=== PATIENT | female | born 1950 | race Caucasian/White ===

== ENCOUNTER 2017-11-22 13:21 | Emergency (ER) | payer OTHER ==
[2017-11-22 13:36] VITALS: BMI 25.0
--- NOTE | 2017-11-22 14:13 | PDOC ---
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 Ybarra: [phone]) 67 y.o. female with a PMH of HTN and vulvar CA (s/p resection 2015) w groin lymph node dissection recurrence in October 2017 who presents with an infected wound. Patient was evaluated and hospitalized at [facility] with MRSA following her 10/2017 surgery. Patient currently on PO Augmentin and has her wound vac changed every three days by a visiting nurse. Nurse noticed some increased erythema and edema today prompting patient's visit to our ED. 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 Ybarra Past History - Past Medical History Allergies/Adverse Reactions: Allergies Allergy/AdvReac Type Severity Reaction Status Date / Time No Known Allergies Allergy Verified 11/22/17 13:30 Home Medications: Ambulatory Orders Unobtainable [Unobtainable] 11/22/17 Cancer: Yes (VULVAR -S/P SX, WOUND VAC ON) COPD: No HTN: Yes Seizures: Yes - Surgical History GI Surgery: Yes (VULVAR -S/P SX, WOUND VAC ON) - Suicide/Smoking/Psychosocial Hx Smoking History: Never smoked Review of Systems - Review of Systems Constitutional: No: Chills, Fever HEENTM: No: Recent change in vision Respiratory: No: Cough, Shortness of Breath Cardiac (ROS): No: Chest Pain ABD/GI: No: Constipated, Diarrhea, Nausea, Vomiting : No: Burning, Dysuria *Physical Exam - Vital Signs Last Vital Signs Temp Pulse Resp BP Pulse Ox 97.9 F 77 19 128/65 99 11/22/17 13:31 11/22/17 13:31 11/22/17 13:31 11/22/17 13:31 11/22/17 13:31 - Physical Exam General Appearance: Yes: Nourished, Appropriately Dressed HEENT: positive: EOMI, SIMRAN Neck: positive: Trachea midline, Supple Respiratory/Chest: positive: Lungs Clear Cardiovascular: positive: S1, S2 Gastrointestinal/Abdominal: positive: Normal Bowel Sounds, Soft, Other (L vulvar edema, TTP - wound vac intact with no appreciable discharge) Extremity: positive: Normal Capillary Refill, Normal Inspection, Coldness, Cyanosis Neurologic: positive: Fully Oriented, Alert ED Treatment Course - LABORATORY CBC & Chemistry Diagram: 11/22/17 15:22 11/22/17 15:22 Medical Decision Making - Medical Decision Making 11/22/17 15:53 67 y.o. female with a PMH of vulvar cancer, s/p resection with 10/2017 lymph node dissection wound infection presents to our ED w/concern for spreading infection. Physical exam significant for swollen, erythematous, malodorous wound site w/intact wound vacuum. Case d/w patient's gynecology-oncology Dr. Emigdio Guerrero - accepts patient for transfer and further evaluation. *DC/Admit/Observation/Transfer Diagnosis at time of Disposition: Postoperative wound infection - Discharge Dispostion Disposition: TRANSFER ACUTE CARE/OTHER HOSP Condition at time of disposition: Stable Admit: No - Referrals Referrals: Noelle Joyner MD [Primary Care Provider] - - Patient Instructions - Post Discharge Activity
--- NOTE | 2017-11-22 14:17 | PDOC ---
Attending Attestation - HPI HPI: 11/22/17 15:00 The patient is a 67 year old female with a significant PMH of vulvar cancer (s/ p resection and vulva reconstruction), HTN, and seizures who presents to the emergency department with the aid who reports malodorous and warm vulvar wound vac. The patient had a wound vac placed in September which she pulled in out in October and had to be replaced. The aid noticed a strong odor over the last few days. The patient denies chest pain, shortness of breath, headache and dizziness. Denies fever, chills, nausea, vomit, diarrhea and constipation. Denies dysuria, frequency, urgency and hematuria. Allergies: NKA Social history: No reported PCP: Dr. Joyner <Bindu Tripp - Last Filed: 11/22/17 15:00> - Resident Resident Name: Marlon Tamica - ED Attending Attestation I have performed the following: I have examined & evaluated the patient, The case was reviewed & discussed with the resident, I agree w/resident's findings & plan, Exceptions are as noted - Physicial Exam PE: GENERAL: Awake, alert, and fully oriented, in no acute distress HEAD: No signs of trauma EYES: PERRLA, EOMI, sclera anicteric, conjunctiva clear ENT: Auricles normal inspection, hearing grossly normal, nares patent, oropharynx clear without exudates. Moist mucosa NECK: Normal ROM, supple, no lymphadenopathy, JVD, or masses LUNGS: Breath sounds equal, clear to auscultation bilaterally. No wheezes, and no crackles HEART: Regular rate and rhythm, normal S1 and S2, no murmurs, rubs or gallops ABDOMEN: Soft, nontender, normoactive bowel sounds. No guarding, no rebound. No masses EXTREMITIES: Normal range of motion, no edema. No clubbing or cyanosis. No cords, erythema, or tenderness NEUROLOGICAL: Cranial nerves II through XII grossly intact. Normal speech, normal gait SKIN: Warm, Dry, normal turgor, no rashes or lesions noted. : L groin VAC in place, draining serosanguinous material. +Edema and erythema distal to the VAC at the most proximal portion of L anterior thigh. - Medical Decision Making Concerned that the swelling has been worsening despite VAC placement. Poss cellulitis vs worsening CA? Will d/w patient's physicians at [facility]. <Jeanne Kam - Last Filed: 11/23/17 21:14>
[2017-11-22 15:28] LABS: BASO % 0.6 % (0-2.0); EOS % 5.5 % (0-4.5); HEMATOCRIT 31.3 % (32.4-45.2); HEMOGLOBIN 10.7 GM/dL (10.7-15.3); LYMPH % 18.8 % (8-40); MCH 27.8 pg (25.7-33.7); MEAN CELL VOLUME 81.6 fl (80-96); MEAN PLT VOLUME 7.4 fl (7.5-11.1); MONO % 10.6 % (3.8-10.2); NEUT % 64.5 % (42.8-82.8); PLATELET COUNT 321 K/MM3 (134-434); RBC 3.84 M/mm3 (3.60-5.2); RDW 14.6 % (11.6-15.6); WHITE BLOOD COUNT 7.8 K/mm3 (4.0-10.0)
[2017-11-22] MEDS ORDERED: morphine CARPU-JECT 2 MG/1 ML DISP.SYRIN IVPUSH ONE (15:52)
[2017-11-22 15:56] LABS: ALBUMIN 2.6 g/dl (3.4-5.0); ANION GAP 10 (8-16); BILIRUBIN,TOTAL 0.2 mg/dL (0.2-1.0); BLOOD UREA NITROGEN 17 mg/dL (7-18); CALCIUM 8.4 mg/dL (8.5-10.1); CHLORIDE 105 mmol/L (98-107); CO2 28 mmol/L (21-32); CREATININE 0.7 mg/dL (0.55-1.02); GLUCOSE,RANDOM 95 mg/dL (74-106); POTASSIUM 3.7 mmol/L (3.5-5.1); SGOT/AST 18 U/L (15-37); SGPT/ALT 22 U/L (12-78); SODIUM 143 mmol/L (136-145); TOT PROT 6.6 g/dl (6.4-8.2)
[2017-11-22 15:57] LABS: ALK PHOS 126 U/L (45-117)
[2017-11-22] MEDS ORDERED: MORPHINE SULFATE 10 MG/1 ML *VIAL ONE (16:41)
[2017-11-22 19:43] VITALS: BP 122/69; PULSE 67; TEMP 98.2
== END 2017-11-22 19:43 | disposition short-term general hospital (02) ==
LOC: JER 13:21
PROC: 3E033NZ Introduction of Analgesics, Hypnotics, Sedatives into Peripheral Vein, Percutaneous Approach (ICD-10-PCS; principal; 2017-11-22)
DX: T81.4XXA Infection following a procedure, initial encounter (principal); Z85.44 Personal history of malignant neoplasm of other female genital organs
CPT/HCPCS: 36415; 80053; 85025; 87040; 99283-25

== ENCOUNTER 2018-01-10 18:23 | Inpatient (IN) | payer OTHER ==
[2018-01-10] MEDS ORDERED: VANCOMYCIN 1,000 MG in DEXTROSE 5%-WATER - 250 ML IVPB ONE (19:30)
[2018-01-10] MEDS ORDERED: PIPERACILLIN/TAZOB 3.375 GM 3.375 GM in DEXTROSE 5%-WATER - 50 ML IVPB ONE (19:31)
[2018-01-10] MEDS ORDERED: SODIUM CHLORIDE 1,000 ML IV STA (19:32)
[2018-01-10] MEDS ORDERED: ACETAMINOPHEN 1000 MG/100 ML VIAL (NON FORMULARY) IVPB ONE (19:32)
--- NOTE | 2018-01-10 19:37 | PDOC ---
Attending Attestation - HPI HPI: 01/10/18 20:10 The patient is a 67 year old female with a significant PMH of vulvar CA (s/p resection and reconstruction), HTN, and seizures who presents to the emergency department with a fever (T. max 102F) and for evaluation of her left inguinal wound. Allergies: NKA PCP: Dr. Joyner <Hua Brower - Last Filed: 01/10/18 20:10> - Resident Resident Name: Gabino Livingston - ED Attending Attestation I have performed the following: I have examined & evaluated the patient, The case was reviewed & discussed with the resident, I agree w/resident's findings & plan, Exceptions are as noted - Physicial Exam PE: 01/10/18 20:23 *Physical Exam General Appearance: Yes: Appropriately Dressed. No: Apparent Distress, Intoxicated HEENT: positive: EOMI, SIMRAN, Normal ENT Inspection, Normal Voice, TMs Normal, Pharynx Normal. negative: Pale Conjunctivae, Photophobia, Scleral Icterus (R), Scleral Icterus (L) Neck: positive: Trachea midline, Normal Thyroid, Supple. negative: Tender, Rigid, Carotid bruit, Stridor, Lymphadenopathy (R), Lymphadenopathy (L), Thyromegaly Respiratory/Chest: positive: Lungs Clear, Normal Breath Sounds. negative: Chest Tender, Respiratory Distress, Accessory Muscle Use, Labored Respiration, RES, Crackles, Rales, Rhonchi, Stridor, Wheezing, Dullness Cardiovascular: positive: Regular Rhythm, Regular Rate, S1, S2. negative: Edema , JVD, Murmur, Bradycardia, Tachycardia Vascular Pulses: Dorsalis-Pedis (R): 2+, Doralis-Pedis (L): 2+ Gastrointestinal/Abdominal: positive: Normal Bowel Sounds, open wound to LLQ, approximmately 15cm x 10 cm, malodrous negative: Tender, Organomegaly, Pulsatile Mass, Increased Bowel Sounds, Decreased BS, Distended, Guarding, Rebound, Hernia, Hepatomegaly, Spleenomegaly Lymphatic: negative: Adenopathy, Tenderness Musculoskeletal: positive: Normal Inspection. negative: CVA Tenderness, Decreased Range of Motion Extremity: positive: Normal Capillary Refill, Normal Inspection, Normal Range of Motion, Pelvis Stable. LLE swollen, tender, and erythematous negative: Tender , Pedal Edema, Swelling, Erythema Integumentary: positive: Normal Color, Dry, Warm. 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 negative: EOM Palsy, Facial Droop, Sensory Deficit - Medical Decision Making 01/10/18 20:[address] Joyner, pt pcp. Pt to be admitted for further treatment <Edgard Robles - Last Filed: 01/10/18 20:29> Heart Score/ECG Review #1 01/10/18 20:10 EKG done at 19:07 Vent rate 89 bpm Normal sinus rhythm Normal ECG <Hua Brower - Last Filed: 01/10/18 20:10>
[2018-01-10 20:22] LABS: VENOUS PC02 45.6 mmHg (38-52); VENOUS PH 7.42 (7.32-7.42); VENOUS PO2 23.3 mmHg (28-48)
[2018-01-10 20:31] LABS: BASO % 0.3 % (0-2.0); EOS % 2.2 % (0-4.5); HEMATOCRIT 31.2 % (32.4-45.2); HEMOGLOBIN 10.6 GM/dL (10.7-15.3); LYMPH % 9.7 % (8-40); MCHC 33.9 g/dl (32.0-36.0); MEAN CELL VOLUME 79.7 fl (80-96); NEUT % 80.8 % (42.8-82.8); PLATELET COUNT 421 K/MM3 (134-434); RBC 3.91 M/mm3 (3.60-5.2); RDW 15.3 % (11.6-15.6); WHITE BLOOD COUNT 9.1 K/mm3 (4.0-10.0)
[2018-01-10 20:42] LABS: INR 1.02 (0.82-1.09); PROTHROMBIN TIME (PATIENT) 11.5 SEC (9.7-13.0)
[2018-01-10 20:44] LABS: ACTIVATED PTT 20.5 SECONDS (26.9-34.4)
[2018-01-10 20:54] LABS: ALBUMIN 2.8 g/dl (3.4-5.0); ANION GAP 8 (8-16); BILIRUBIN,TOTAL 0.2 mg/dL (0.2-1.0); BLOOD UREA NITROGEN 18 mg/dL (7-18); CALCIUM 8.4 mg/dL (8.5-10.1); CHLORIDE 100 mmol/L (98-107); CO2 28 mmol/L (21-32); CREATININE 0.9 mg/dL (0.55-1.02); GLUCOSE,RANDOM 108 mg/dL (74-106); POTASSIUM 4.1 mmol/L (3.5-5.1); SGOT/AST 49 U/L (15-37); SGPT/ALT 39 U/L (12-78); SODIUM 136 mmol/L (136-145); TOT PROT 7.8 g/dl (6.4-8.2)
[2018-01-10 20:55] LABS: ALK PHOS 183 U/L (45-117)
--- NOTE | 2018-01-10 21:03 | PDOC ---
History of Present Illness - General Chief Complaint: Wound Stated Complaint: PAIN Time Seen by Provider: 01/10/18 19:15 History Source: Patient Exam Limitations: No Limitations - History of Present Illness Initial Comments: 01/10/18 20:03 Patient is a 67F with history of HTN, vulvar cancer with lymph node dissection in October 2017 coming in complaining of wound to her left groin region. She states that she called an ambulance today because she has a fever. The patient has poor insight into her condition, stating that her son has been doing daily wound checks. She denies chest pain, shortness of breath, nausea, vomiting. Her surgery was done in [facility] by Dr Ybarra ([phone]). Dr Guerrero contacted , states that patient has had this wound chronically and issues with it several times before. States that patient has cancer that isn't amenable for surgery. Past History - Past Medical History Allergies/Adverse Reactions: Allergies Allergy/AdvReac Type Severity Reaction Status Date / Time No Known Allergies Allergy Verified 01/10/18 19:35 Home Medications: Ambulatory Orders Unobtainable [Unobtainable] 11/22/17 Cancer: Yes (VULVAR -S/P SX, WOUND VAC ON) COPD: No HTN: Yes Seizures: Yes - Surgical History GI Surgery: Yes (VULVAR -S/P SX, WOUND VAC ON) - Suicide/Smoking/Psychosocial Hx Smoking History: Never smoked Have you smoked in the past 12 months: No Information on smoking cessation initiated: No Hx Alcohol Use: No Drug/Substance Use Hx: No Substance Use Type: None Review of Systems - Review of Systems Comments:: 01/10/18 21:06 GENERAL/CONSTITUTIONAL: Positive for fever and chills. HEAD, EYES, EARS, NOSE AND THROAT: No change in vision. No sore throat. CARDIOVASCULAR: No chest pain or shortness of breath RESPIRATORY: No cough, wheezing, or hemoptysis. GASTROINTESTINAL: No nausea, vomiting, diarrhea or constipation. GENITOURINARY: No dysuria, frequency, or change in urination. MUSCULOSKELETAL: No joint or muscle swelling or pain. No neck or back pain. SKIN: No rash NEUROLOGIC: No headache, vertigo, loss of consciousness, or change in strength/ sensation. ENDOCRINE: No increased thirst. No abnormal weight change HEMATOLOGIC/LYMPHATIC: No anemia, easy bleeding, or history of blood clots. ALLERGIC/IMMUNOLOGIC: No hives or skin allergy. *Physical Exam - Vital Signs Last Vital Signs Temp Pulse Resp BP Pulse Ox 102.0 F H 92 H 19 156/78 100 01/10/18 18:30 01/10/18 18:30 01/10/18 18:30 01/10/18 18:30 01/10/18 18:30 - Physical Exam Comments: 01/10/18 21:07 GENERAL: Awake, alert, and fully oriented, in no acute distress, malodorous L WOUND: [id number] deep, packed, odorous, drainage HEAD: No signs of trauma, normocephalic, atraumatic EYES: PERRLA, EOMI, sclera anicteric, conjunctiva clear ENT: Auricles normal inspection, hearing grossly normal, nares patent, oropharynx clear without exudates. Moist mucosa NECK: Normal ROM, supple, no lymphadenopathy, JVD, or masses LUNGS: No distress, speaks full sentences, clear to auscultation bilaterally HEART: Regular rate and rhythm, normal S1 and S2, no murmurs, rubs or gallops, peripheral pulses normal and equal bilaterally. ABDOMEN: Soft, nontender, normoactive bowel sounds. No guarding, no rebound. No masses EXTREMITIES: Normal inspection, Normal range of motion, pitting edema diffusely in left leg. No clubbing or cyanosis. NEUROLOGICAL: Cranial nerves II through XII grossly intact. Normal speech, no focal sensorimotor deficits SKIN: Warm, Dry, normal turgor, no rashes or lesions noted. ED Treatment Course - LABORATORY CBC & Chemistry Diagram: 01/10/18 19:58 01/10/18 19:58 - RADIOLOGY Radiology Studies Ordered: Category Date Time Status CHEST X-RAY PORTABLE* [RAD] Stat Radiology 01/10/18 19:20 Completed DUPLEX VASCUL US-2LEGS [US] Stat Ultrasound 01/10/18 19:38 Ordered Medical Decision Making - Medical Decision Making 01/10/18 20:25 Patient is 67F with history of HTN, vulvar cancer s/p lymph node dissection here today with groin wound. Febrile, tachycardic, septic. BP stable. Septic workup initiated with bilateral DVT US added. Patient started on vanc, zosyn and flagyl. Given 1L fluids instead of full 30cc bolus due to patients diffuse edema in both legs, left worse than right. Will re-evaluate need for further 800mL to meet 30cc/kg target. IV tylenol given. Initial peripheral IV access failed. US guided IV placed under supervision of Dr Robles. CXR shows no acute cardiopulmonary process. 01/10/18 21:48 Laboratory Tests 01/10/18 01/10/18 01/10/18 19:58 19:58 19:58 WBC 9.1 Hgb 10.6 L Hct 31.2 L Plt Count 421 D VBG pH 7.42 Lactic Acid Troponin I < 0.02 01/10/18 19:58 WBC Hgb Hct Plt Count VBG pH Lactic Acid 1.4 Troponin I CBC normal. Lactic acid normal. Troponin undetectable. Vital signs remain stable. DVT study limited, but negative. Believe swelling likely due to infection and lymph node dissection. Patient septic, not severe sepsis or or septic shock. Dr Joyner accepted admission. *DC/Admit/Observation/Transfer Diagnosis at time of Disposition: Wound infection - Discharge Dispostion Condition at time of disposition: Stable Decision to Admit order: Yes - Referrals Referrals: Noelle Joyner MD [Primary Care Provider] - - Patient Instructions - Post Discharge Activity
[2018-01-10] MEDS ORDERED: VANCOMYCIN 1 GRAM (PRE-DOCKED) 1,000 MG/250 ML BAG IVPB ONE (22:17)
[2018-01-10] MEDS ORDERED: ACETAMINOPHEN INJECTION 100 ML IVPB ONE (22:17)
[2018-01-10] MEDS ORDERED: PIPERACILLIN/TAZOB 3.375 GM 3.375 GM/50 ML BAG IVPB ONE (22:18)
[2018-01-11 07:19] LABS: BASO % 0.7 % (0-2.0); EOS % 3.3 % (0-4.5); HEMATOCRIT 29.3 % (32.4-45.2); HEMOGLOBIN 9.9 GM/dL (10.7-15.3); LYMPH % 13.5 % (8-40); MCH 27.1 pg (25.7-33.7); MCHC 33.9 g/dl (32.0-36.0); MEAN CELL VOLUME 79.9 fl (80-96); MEAN PLT VOLUME 7.6 fl (7.5-11.1); MONO % 11.2 % (3.8-10.2); NEUT % 71.3 % (42.8-82.8); PLATELET COUNT 373 K/MM3 (134-434); RBC 3.66 M/mm3 (3.60-5.2); WHITE BLOOD COUNT 7.3 K/mm3 (4.0-10.0)
[2018-01-11 08:01] LABS: CHLORIDE 104 mmol/L (98-107); POTASSIUM 3.8 mmol/L (3.5-5.1); SODIUM 138 mmol/L (136-145)
[2018-01-11 08:07] LABS: URINE APPEARANCE CLEAR; URINE BILIRUBIN NEGATIVE (<2.0 mg/dL); URINE COLOR YELLOW; URINE GLUCOSE (UA) NEGATIVE (NEGATIVE); URINE KETONE NEGATIVE (NEGATIVE); URINE LEUK ESTERASE TRACE (NEGATIVE); URINE NITRITE NEGATIVE (NEGATIVE); URINE PROTEIN NEGATIVE (NEGATIVE); URINE UROBILINOGEN NEGATIVE mg/dL (0.2-1.0)
[2018-01-11 08:17] LABS: EPI CELLS RARE /HPF (FEW); URINE BACTERIA RARE /hpf (NONE SEEN); URINE MUCUS RARE
[2018-01-11 08:29] LABS: ALBUMIN 2.4 g/dl (3.4-5.0); ALK PHOS 159 U/L (45-117); ANION GAP 7 (8-16); BILIRUBIN,TOTAL 0.3 mg/dL (0.2-1.0); BLOOD UREA NITROGEN 14 mg/dL (7-18); CALCIUM 8.2 mg/dL (8.5-10.1); CO2 27 mmol/L (21-32); CREATININE 0.8 mg/dL (0.55-1.02); GLUCOSE,RANDOM 94 mg/dL (74-106); MAGNESIUM 2.3 mg/dL (1.8-2.4); SGOT/AST 26 U/L (15-37); SGPT/ALT 30 U/L (12-78)
--- NOTE | 2018-01-11 09:41 | EKG ---
Test Reason : Blood Pressure : / mmHG Vent. Rate : 089 BPM Atrial Rate : 089 BPM P-R Int : 130 ms QRS Dur : 080 ms QT Int : 368 ms P-R-T Axes : 041 025 032 degrees QTc Int : 447 ms NORMAL SINUS RHYTHM WHEN COMPARED WITH ECG OF 03-NOV-2002 12:19, NO SIGNIFICANT CHANGE WAS FOUND Confirmed by AYUSH ROMERO MD ([id number]) on 01/11/2018 9:41:40 AM Referred By: Confirmed By:AYUSH ROMERO MD
--- NOTE | 2018-01-11 10:47 | CON.ID ---
Consult Consult Specialty:: infectious disease Referred by:: anurag - History of Present Illness Chief Complaint: fever History of Present Illness: 67year old female with vulvar cancer s/p resection 2016, recent groin lymph no resection 2017, hospitalized in November at [facility] for wound infection now admitted with fever of 102. 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 groin lymph node resection Oct 2017 - Alcohol/Substance Use Hx Alcohol Use: No - Smoking History Smoking history: Never smoked Have you smoked in the past 12 months: No - Social History Usual Living Arrangement: With Child ADL: Independent Home Medications - Allergies Allergies/Adverse Reactions: Allergies Allergy/AdvReac Type Severity Reaction Status Date / Time No Known Allergies Allergy Verified 01/10/18 19:35 - Home Medications Home Medications: Ambulatory Orders Unobtainable [Unobtainable] 11/22/17 Family Disease History - Family Disease History Family History: Unable to Obtain Review of Systems - Review of Systems Constitutional: reports: Fever Eyes: reports: No Symptoms HENT: reports: No Symptoms. denies: Difficult Swallowing, Throat Pain Neck: reports: No Symptoms Cardiovascular: reports: No Symptoms, Edema (chronic swelling RLE). denies: Chest Pain Respiratory: reports: No Symptoms. denies: Cough, SOB Gastrointestinal: reports: No Symptoms. denies: Abdominal Pain, Constipation, Diarrhea Genitourinary: reports: No Symptoms. denies: Burning, Discharge, Hematuria, Urgency Physical Exam Vital Signs: Vital Signs Temperature 98.3 F 01/11/18 10:16 Pulse Rate 71 01/11/18 10:16 Respiratory Rate 18 01/11/18 10:16 Blood Pressure 139/67 01/11/18 10:16 O2 Sat by Pulse Oximetry (%) 97 01/11/18 10:16 Constitutional: Yes: Well Nourished, No Distress Eyes: Yes: Conjunctiva Clear HENT: Yes: Atraumatic, Normocephalic Neck: Yes: Supple Cardiovascular: Yes: Regular Rate and Rhythm Respiratory: Yes: Regular, CTA Bilaterally Gastrointestinal: Yes: Normal Bowel Sounds, Soft ...Rectal Exam: Yes: Deferred Renal/: No: CVA Tenderness - Left, CVA Tenderness - Right Extremities: Yes: Other (edema LLE-patient reports chronic) Edema: LLE: 2+ Wound/Incision: Yes: Other (large left groin ulcer with foul odor and drainage, no surrounding cellulitis) Psychiatric: Yes: Oriented Labs: CBC, BMP 01/11/18 06:12 01/11/18 07:40 Imaging - Results Chest X-ray: Report Reviewed, Image Reviewed Ultrasound: Report Reviewed Problem List - Problems (1) Fever Code(s): R50.9 - FEVER, UNSPECIFIED (2) Wound infection Code(s): T14.8XXA - OTHER INJURY OF UNSPECIFIED BODY REGION, INITIAL ENCOUNTER; L08.9 - LOCAL INFECTION OF THE SKIN AND SUBCUTANEOUS TISSUE, UNSP Assessment/Plan fever- no other localizing source but the groin wound foul smelling with drainage vanoc/zosyn- cultures surgical evaluation will follow with you duplex negative for dvt d/w primary service
[2018-01-11] MEDS ORDERED: VANCOMYCIN 1,000 MG in DEXTROSE 5%-WATER - 250 ML IVPB SCH (11:00)
--- NOTE | 2018-01-11 11:09 | HP ---
Admitting History and Physical - Primary Care Physician PCP: Dr. Joyner - Admission Chief Complaint: 67 y/o female came to ER last night for pain/edema in left leg / fever.Has Chronic nonhealing wd in lt groin area. History of Present Illness: 67 y/o female had Vulvar CA s/p resection at [facility]. Now with infected Wd. History Source: Patient Limitations to Obtaining History: No Limitations - Smoking History Smoking history: Never smoked Have you smoked in the past 12 months: No - Alcohol/Substance Use Hx Alcohol Use: No - Social History ADL: Family Assistance (Son assists) History of Recent Travel: No Home Medications - Allergies Allergies/Adverse Reactions: Allergies Allergy/AdvReac Type Severity Reaction Status Date / Time No Known Allergies Allergy Verified 01/10/18 19:35 - Home Medications Home Medications: Ambulatory Orders Unobtainable [Unobtainable] 11/22/17 Review of Systems - Review of Systems Constitutional: reports: No Symptoms Eyes: reports: No Symptoms HENT: reports: No Symptoms Neck: reports: No Symptoms Cardiovascular: reports: No Symptoms Respiratory: reports: No Symptoms Gastrointestinal: reports: No Symptoms Genitourinary: reports: No Symptoms Breasts: reports: No Symptoms Reported Musculoskeletal: reports: No Symptoms, Extremity Pain, Joint Swelling Integumentary: reports: No Symptoms Neurological: reports: No Symptoms Endocrine: reports: No Symptoms Hematology/Lymphatic: reports: No Symptoms Psychiatric: reports: No Symptoms Physical Examination Vital Signs: Vital Signs Temperature 98.3 F 01/11/18 10:16 Pulse Rate 71 01/11/18 10:16 Respiratory Rate 18 01/11/18 10:16 Blood Pressure 139/67 01/11/18 10:16 O2 Sat by Pulse Oximetry (%) 97 01/11/18 10:16 Constitutional: Yes: Well Nourished, Calm Eyes: Yes: WNL, Conjunctiva Clear HENT: Yes: WNL, Normocephalic Neck: Yes: Supple Cardiovascular: Yes: Regular Rate and Rhythm Respiratory: Yes: CTA Bilaterally Gastrointestinal: Yes: Normal Bowel Sounds, Soft, Abdomen, Obese ...Rectal Exam: Yes: Deferred Renal/: Yes: WNL Breast(s): Yes: WNL Musculoskeletal: Yes: Joint Swelling Extremities: Yes: Cool, Deformity Edema: Yes (Lt Inguinal to foot) Edema: LUE: 2+ (Entire LE edematous) Integumentary: Yes: Other (Inguinal wd) Labs: CBC, BMP 01/11/18 06:12 01/11/18 07:40 Imaging - Results Other: Pending (Doppler LT LE) Problem List - Problems (1) Seizures Code(s): R56.9 - UNSPECIFIED CONVULSIONS (2) Hypertension Code(s): I10 - ESSENTIAL (PRIMARY) HYPERTENSION Qualifiers: Hypertension type: essential hypertension Qualified Code(s): I10 - Essential (primary) hypertension Assessment/Plan #LT inguinal Wd Seen With ID IV antibiotics Wd Consult Tylenol for pain # HTN RADHA #Seizure Oxycarbazepine 600mg BID
[2018-01-11] MEDS: PIPERACILLIN/TAZOB 3.375 GM 3.375 GM in DEXTROSE 5%-WATER - 50 ML IVPB SCH ×3 (11:30→22:06)
[2018-01-11 13:51] VITALS: BMI 26.4
[2018-01-11] MEDS ORDERED: PNEUMOC 13-VAL CONJ-DIP CRM/PF 0.5 ML DISP.SYRIN IM ONE (14:01)
[2018-01-11] MEDS ORDERED: PIPERACILLIN/TAZOBACTAM 3.375 GM VIAL IVPB ONE (14:29)
[2018-01-11] MEDS ORDERED: DEXTROSE 5%-WATER - 50 ML IVPB ONE (14:30)
[2018-01-11] MEDS: OXcarbazepine 300 MG/5 ML 250 ML BULK BOTTLE PO SCH ×2 (17:11→22:07)
--- NOTE | 2018-01-11 18:19 | PN ---
Progress Note (short form) - Note Progress Note: Vascular Surgery Pt seen and examined. left groin wound. S/p lymph node dissection and excision of vulvar cancer. DRessing changed. Wound now looks clean, pink. Not a lot of drainage. Will place vac to wound to help close . Pavan Negro DO
[2018-01-11] MEDS ORDERED: PT OWN MED DRAWER 7, Y5N ONE (18:32)
[2018-01-12] MEDS: VANCOMYCIN 1,000 MG in DEXTROSE 5%-WATER - 250 ML IVPB SCH ×2 (01:09→14:00)
[2018-01-12] MEDS ORDERED: PIPERACILLIN/TAZOBACTAM 3.375 GM VIAL IVPB ONE ×4 (03:16→21:07)
[2018-01-12] MEDS ORDERED: DEXTROSE 5%-WATER - 50 ML IVPB ONE ×4 (03:16→21:07)
[2018-01-12] MEDS: PIPERACILLIN/TAZOB 3.375 GM 3.375 GM in DEXTROSE 5%-WATER - 50 ML IVPB SCH ×4 (03:18→21:41)
[2018-01-12] MEDS ORDERED: PT OWN MED DRAWER 7, Y5N ONE ×2 (09:57→11:51)
[2018-01-12] MEDS: OXcarbazepine 300 MG/5 ML 250 ML BULK BOTTLE PO SCH ×2 (09:59→21:40)
--- NOTE | 2018-01-12 18:08 | PN ---
Progress Note (short form) - Note Progress Note: 67year old female with vulvar cancer s/p resection 2016, recent groin lymph no resection 2017, hospitalized in November at [facility] for wound infection now admitted with fever of 102. SHe states her son has been packing her wound at home no cough, dysuria, nausea or vomiting or diarrhea ED contacted her gyneonc at [facility]- transfer declined- chronic wound eval / follow by wound and ID Vital Signs Period Temp Pulse Resp BP Sys/Pedroza Pulse Ox Last 24 Hr 98.0 F-99.1 F 67-77 16-20 140-146/63-74 99 neck supple heart s1/S2 lung clear abd soft not tender left groin open wound packed with gauze / dressing moist ext no edema CBC, BMP 01/11/18 06:12 01/11/18 07:40 Microbiology 01/11/18 12:45 Ulcer Gram Stain - Final 01/11/18 12:45 Ulcer Wound Culture - Preliminary Non Lactose Fermenting Gnb Non Lactose Fermenting Gnb#2 Non Lactose Fermenting Gnb#3 Group D Strep Or Entero Coccus Pending Organism Pending Organism#2 01/10/18 07:30 Urine - Urine Clean Catch Urine Culture - Final Contaminated: Please Repeat 01/10/18 19:58 Blood - Peripheral Venous Blood Culture - Preliminary NO GROWTH OBTAINED AFTER 24 HOURS, INCUBATION TO CONTINUE FOR 4 DAYS. 01/10/18 19:58 Blood - Peripheral Venous Blood Culture - Preliminary NO GROWTH OBTAINED AFTER 24 HOURS, INCUBATION TO CONTINUE FOR 4 DAYS. Active Medications Vancomycin HCl 1,000 mg/ (Dextrose) 250 mls @ 150 mls/hr IVPB BID@0000,1200 LUCY PRN Reason: Protocol Last Admin: 01/12/18 14:00 Dose: 150 mls/hr Piperacillin Sod/Tazobactam (Sod 3.375 gm/ Dextrose) 50 mls @ 100 mls/hr IVPB Q6H-IV LUCY PRN Reason: Protocol Last Admin: 01/12/18 15:48 Dose: 100 mls/hr Oxcarbazepine (Trileptal) 600 mg PO BID [facility] Last Admin: 01/12/18 09:59 Dose: 600 ml # vulvar cancer s/p resection and reconstriction open / infected wound left groin ----improving per nursing continue wound care vacuum still not in place # htn trend bp continue meds # seizure trileptil
[2018-01-13] MEDS ORDERED: DEXTROSE 5%-WATER - 50 ML IVPB ONE ×4 (01:19→21:15)
[2018-01-13] MEDS ORDERED: PIPERACILLIN/TAZOBACTAM 3.375 GM VIAL IVPB ONE ×4 (01:19→21:15)
[2018-01-13] MEDS: VANCOMYCIN 1,000 MG in DEXTROSE 5%-WATER - 250 ML IVPB SCH ×2 (01:46→11:27)
[2018-01-13] MEDS: PIPERACILLIN/TAZOB 3.375 GM 3.375 GM in DEXTROSE 5%-WATER - 50 ML IVPB SCH ×4 (04:09→21:39)
[2018-01-13 07:58] LABS: BASO % 0.5 % (0-2.0); EOS % 6.7 % (0-4.5); HEMATOCRIT 30.3 % (32.4-45.2); HEMOGLOBIN 10.4 GM/dL (10.7-15.3); LYMPH % 15.1 % (8-40); MCH 27.4 pg (25.7-33.7); MCHC 34.3 g/dl (32.0-36.0); MEAN CELL VOLUME 79.8 fl (80-96); MEAN PLT VOLUME 7.9 fl (7.5-11.1); MONO % 9.5 % (3.8-10.2); NEUT % 68.2 % (42.8-82.8); PLATELET COUNT 401 K/MM3 (134-434); WHITE BLOOD COUNT 7.9 K/mm3 (4.0-10.0)
[2018-01-13] MEDS ORDERED: PT OWN MED DRAWER 7, Y5N ONE (08:39)
[2018-01-13 08:47] LABS: CHLORIDE 102 mmol/L (98-107); SODIUM 138 mmol/L (136-145)
[2018-01-13 08:51] LABS: ANION GAP 11 (8-16); BLOOD UREA NITROGEN 14 mg/dL (7-18); CALCIUM 8.3 mg/dL (8.5-10.1); CO2 25 mmol/L (21-32); CREATININE 0.9 mg/dL (0.55-1.02); GLUCOSE,RANDOM 101 mg/dL (74-106)
[2018-01-13 08:54] LABS: MAGNESIUM 2.1 mg/dL (1.8-2.4); POTASSIUM 4.1 mmol/L (3.5-5.1)
[2018-01-13] MEDS: OXcarbazepine 300 MG/5 ML 250 ML BULK BOTTLE PO SCH ×2 (09:59→21:39)
--- NOTE | 2018-01-13 11:40 | PN ---
Progress Note (short form) - Note Progress Note: 67year old female with vulvar cancer s/p resection 2016, recent groin lymph no resection 2017, hospitalized in November at [facility] for wound infection now admitted with fever of 102. SHe states her son has been packing her wound at home no cough, dysuria, nausea or vomiting or diarrhea ED contacted her gyneonc at [facility]- transfer declined- chronic wound eval / follow by wound and ID patient seen and examined when doing wound care wound examined base is clean - not foul smelling - cleaning of wound elicites "electric shock" down her left leg Vital Signs Period Temp Pulse Resp BP Sys/Pedroza Pulse Ox Last 24 Hr 97.9 F-99.5 F 70-76 16-20 142-155/64-88 99 neck supple heart s1/S2 lung clear abd soft groin left - open wound / clean base / borders clean / reconstruction of vulva ext no edema CBC, BMP 01/13/18 07:00 01/13/18 07:00 Microbiology 01/10/18 19:58 Blood - Peripheral Venous Blood Culture - Preliminary NO GROWTH OBTAINED AFTER 48 HOURS, INCUBATION TO CONTINUE FOR 3 DAYS. 01/10/18 19:58 Blood - Peripheral Venous Blood Culture - Preliminary NO GROWTH OBTAINED AFTER 48 HOURS, INCUBATION TO CONTINUE FOR 3 DAYS. 01/11/18 12:45 Ulcer Gram Stain - Final 01/11/18 12:45 Ulcer Wound Culture - Preliminary Non Lactose Fermenting Gnb Non Lactose Fermenting Gnb#2 Non Lactose Fermenting Gnb#3 Group D Strep Or Entero Coccus Pending Organism Pending Organism#2 01/10/18 07:30 Urine - Urine Clean Catch Urine Culture - Final Contaminated: Please Repeat Active Medications Acetaminophen/Codeine Phosphate (Tylenol # 3 -) 1 tab PO Q6H PRN PRN Reason: PAIN LEVEL 1-5 Gabapentin (Neurontin -) 200 mg PO TID LUCY Vancomycin HCl 1,000 mg/ (Dextrose) 250 mls @ 150 mls/hr IVPB BID@0000,1200 LUCY PRN Reason: Protocol Last Admin: 01/13/18 11:27 Dose: 150 mls/hr Piperacillin Sod/Tazobactam (Sod 3.375 gm/ Dextrose) 50 mls @ 100 mls/hr IVPB Q6H-IV LUCY PRN Reason: Protocol Last Admin: 01/13/18 09:59 Dose: 100 mls/hr Oxcarbazepine (Trileptal) 600 mg PO BID LUCY Last Admin: 01/13/18 09:59 Dose: 10 ml # vulvar cancer s/p resection and reconstriction open / infected wound left groin ----improving continue wound care / neuropathic pain with cleaning -- will add gabapentin vacuum still not in place # htn trend bp continue meds # seizure trileptil
[2018-01-13] MEDS: ACETAMINOPHEN WITH CODEINE 300MG/30MG TABLET PO PRN ×2 (12:10→21:38)
[2018-01-13] MEDS: GABAPENTIN 100 MG CAPSULE (FP) PO SCH ×2 (14:26→21:39)
[2018-01-14] MEDS: VANCOMYCIN 1,000 MG in DEXTROSE 5%-WATER - 250 ML IVPB SCH ×2 (01:01→12:03)
[2018-01-14] MEDS ORDERED: PIPERACILLIN/TAZOBACTAM 3.375 GM VIAL IVPB ONE ×2 (01:04→09:55)
[2018-01-14] MEDS ORDERED: DEXTROSE 5%-WATER - 50 ML IVPB ONE ×2 (01:04→09:55)
[2018-01-14] MEDS: PIPERACILLIN/TAZOB 3.375 GM 3.375 GM in DEXTROSE 5%-WATER - 50 ML IVPB SCH ×2 (04:40→10:08)
[2018-01-14] MEDS: GABAPENTIN 100 MG CAPSULE (FP) PO SCH ×3 (06:49→21:19)
[2018-01-14] MEDS ORDERED: PT OWN MED DRAWER 7, Y5N ONE ×2 (09:55→20:52)
[2018-01-14] MEDS: OXcarbazepine 300 MG/5 ML 250 ML BULK BOTTLE PO SCH ×2 (10:09→21:20)
[2018-01-14] MEDS: ACETAMINOPHEN WITH CODEINE 300MG/30MG TABLET PO PRN ×2 (10:52→17:37)
--- NOTE | 2018-01-14 12:55 | PN ---
Progress Note (short form) - Note Progress Note: vac just placed by surgery no surrounding erythema afebrile cor-rrr lungs clear abd soft,nt ext Vac in place CBC, BMP 01/13/18 07:00 01/13/18 07:00 Microbiology 01/11/18 12:45 Ulcer Gram Stain - Final 01/11/18 12:45 Ulcer Wound Culture - Preliminary Pseudomonas Aeruginosa Pseudomonas Aeruginosa#3 Group D Strep Or Entero Coccus Beta Hem Streptococcus Group G Staphylococcus Latex Coag Pos 01/10/18 19:58 Blood - Peripheral Venous Blood Culture - Preliminary NO GROWTH OBTAINED AFTER 72 HOURS, INCUBATION TO CONTINUE FOR 2 DAYS. 01/10/18 19:58 Blood - Peripheral Venous Blood Culture - Preliminary NO GROWTH OBTAINED AFTER 72 HOURS, INCUBATION TO CONTINUE FOR 2 DAYS. 01/10/18 07:30 Urine - Urine Clean Catch Urine Culture - Final Contaminated: Please Repeat a/p chronic wound- clinically clean- no erythema or purulence not suprising wound is pollymicrobial given location can d/c antibitocs local care vac per surgery Problem List - Problems (1) Fever Code(s): R50.9 - FEVER, UNSPECIFIED (2) Wound infection Code(s): T14.8XXA - OTHER INJURY OF UNSPECIFIED BODY REGION, INITIAL ENCOUNTER; L08.9 - LOCAL INFECTION OF THE SKIN AND SUBCUTANEOUS TISSUE, UNSP
--- NOTE | 2018-01-14 13:02 | PN ---
Progress Note (short form) - Note Progress Note: PT seen by Dr. Negro and wound vac ordered. Applied white foam to base and covered with black foam. Applied 75mmg vac therapy. Pt tolerated the procedure well. Wound: granulation tissue at base, minimal exudate. 10 cm long, 2 cm wide and 6 cm deep. Wound located in left groin region. No palpable or visiable masses seen. A/P: 67 yo female with chronic wound after surgical procedure. Vac placed today, change MWF. Orders written. D/w Dr. Negro
--- NOTE | 2018-01-14 18:04 | PN ---
Progress Note (short form) - Note Progress Note: patient seen and examined in her room wound vac still not placed dressing to site looks clean -- no d/c or foul smell she reports leg cramps and pain when wound is cleaned additional gabapentin did not alleviate Vital Signs Period Temp Pulse Resp BP Sys/Pedroza Pulse Ox Last 24 Hr 98.0 F-99.1 F 67-77 16-20 140-146/63-74 99 neck supple heart s1/S2 lung clear abd soft not tender left groin open wound packed with gauze / dressing moist ext no edema CBC, BMP 01/13/18 07:00 01/13/18 07:00 Microbiology 01/11/18 12:45 Ulcer Gram Stain - Final 01/11/18 12:45 Ulcer Wound Culture - Preliminary Pseudomonas Aeruginosa Pseudomonas Aeruginosa#3 Enterococcus Faecalis Beta Hem Streptococcus Group G Presumptive Mrsa (Pbp2a Pos) 01/10/18 19:58 Blood - Peripheral Venous Blood Culture - Preliminary NO GROWTH OBTAINED AFTER 72 HOURS, INCUBATION TO CONTINUE FOR 2 DAYS. 01/10/18 19:58 Blood - Peripheral Venous Blood Culture - Preliminary NO GROWTH OBTAINED AFTER 72 HOURS, INCUBATION TO CONTINUE FOR 2 DAYS. 01/10/18 07:30 Urine - Urine Clean Catch Urine Culture - Final Contaminated: Please Repeat Active Medications Acetaminophen/Codeine Phosphate (Tylenol # 3 -) 1 tab PO Q6H PRN PRN Reason: PAIN LEVEL 1-5 Last Admin: 01/14/18 17:37 Dose: 1 tab Gabapentin (Neurontin -) 200 mg PO TID [facility] Last Admin: 01/14/18 14:08 Dose: 200 mg Oxcarbazepine (Trileptal) 600 mg PO BID [facility] Last Admin: 01/14/18 10:09 Dose: 10 ml Vancomycin HCl 1,000 mg/ (Dextrose) 250 mls @ 150 mls/hr IVPB BID@0000,1200 [facility] PRN Reason: Protocol Last Admin: 01/13/18 11:27 Dose: 150 mls/hr Piperacillin Sod/Tazobactam (Sod 3.375 gm/ Dextrose) 50 mls @ 100 mls/hr IVPB Q6H-IV LUCY PRN Reason: Protocol Last Admin: 01/13/18 09:59 Dose: 100 mls/hr # vulvar cancer s/p resection and reconstruction open / infected wound left groin ----improving continue wound care awaiting placement of wound vac added Gabapentin with no improvement # htn trend bp # seizure trileptil
[2018-01-15] MEDS: GABAPENTIN 100 MG CAPSULE (FP) PO SCH ×3 (06:07→22:18)
[2018-01-15] MEDS: ACETAMINOPHEN WITH CODEINE 300MG/30MG TABLET PO PRN (07:50)
[2018-01-15] MEDS ORDERED: PT OWN MED DRAWER 7, Y5N ONE (11:21)
[2018-01-15] MEDS: OXcarbazepine 300 MG/5 ML 250 ML BULK BOTTLE PO SCH ×2 (11:27→22:19)
--- NOTE | 2018-01-15 23:41 | PN ---
Progress Note (short form) - Note Progress Note: patient seen and examined in her room wound vac still not placed dressing to site looks clean -- no d/c or foul smell she reports leg cramps and pain when wound is cleaned additional gabapentin did not alleviate Vital Signs Period Temp Pulse Resp BP Sys/Pedroza Pulse Ox Last 24 Hr 98.0 F-99.1 F 67-77 16-20 140-146/63-74 99 neck supple heart s1/S2 lung clear abd soft not tender left groin open wound packed with gauze / dressing moist ext no edema CBC, BMP 01/13/18 07:00 01/13/18 07:00 Microbiology 01/10/18 19:58 Blood - Peripheral Venous Blood Culture - Final NO GROWTH AFTER 5 DAYS INCUBATION 01/10/18 19:58 Blood - Peripheral Venous Blood Culture - Final NO GROWTH AFTER 5 DAYS INCUBATION 01/11/18 12:45 Ulcer Gram Stain - Final 01/11/18 12:45 Ulcer Wound Culture - Final Pseudomonas Aeruginosa Pseudomonas Aeruginosa#3 Enterococcus Faecalis Beta Hem Streptococcus Group G Mr S Aureus 01/10/18 07:30 Urine - Urine Clean Catch Urine Culture - Final Contaminated: Please Repeat Active Medications Acetaminophen/Codeine Phosphate (Tylenol # 3 -) 1 tab PO Q6H PRN PRN Reason: PAIN LEVEL 1-5 Last Admin: 01/14/18 17:37 Dose: 1 tab Gabapentin (Neurontin -) 200 mg PO TID [facility] Last Admin: 01/14/18 14:08 Dose: 200 mg Oxcarbazepine (Trileptal) 600 mg PO BID [facility] Last Admin: 01/14/18 10:09 Dose: 10 ml Vancomycin HCl 1,000 mg/ (Dextrose) 250 mls @ 150 mls/hr IVPB BID@0000,1200 [facility] PRN Reason: Protocol Last Admin: 01/13/18 11:27 Dose: 150 mls/hr Piperacillin Sod/Tazobactam (Sod 3.375 gm/ Dextrose) 50 mls @ 100 mls/hr IVPB Q6H-IV [facility] PRN Reason: Protocol Last Admin: 01/13/18 09:59 Dose: 100 mls/hr # vulvar cancer s/p resection and reconstruction open / infected wound left groin ----improving continue wound care awaiting placement of wound vac added Gabapentin with no improvement # htn trend bp disposition # seizure trileptil disposition -- awaiting arrangements for home care / wound vac care
[2018-01-16] MEDS: GABAPENTIN 100 MG CAPSULE (FP) PO SCH ×2 (05:43→15:15)
[2018-01-16 08:04] LABS: BASO % 0.6 % (0-2.0); EOS % 4.5 % (0-4.5); HEMATOCRIT 30.6 % (32.4-45.2); HEMOGLOBIN 10.3 GM/dL (10.7-15.3); LYMPH % 15.8 % (8-40); MCH 26.6 pg (25.7-33.7); MCHC 33.8 g/dl (32.0-36.0); MEAN CELL VOLUME 78.5 fl (80-96); MEAN PLT VOLUME 7.5 fl (7.5-11.1); NEUT % 71.1 % (42.8-82.8); PLATELET COUNT 405 K/MM3 (134-434); RDW 14.8 % (11.6-15.6); WHITE BLOOD COUNT 8.9 K/mm3 (4.0-10.0)
[2018-01-16 08:24] LABS: ANION GAP 9 (8-16); BLOOD UREA NITROGEN 20 mg/dL (7-18); CALCIUM 8.5 mg/dL (8.5-10.1); CHLORIDE 101 mmol/L (98-107); CO2 28 mmol/L (21-32); CREATININE 0.7 mg/dL (0.55-1.02); GLUCOSE,RANDOM 98 mg/dL (74-106); POTASSIUM 4.2 mmol/L (3.5-5.1); SODIUM 138 mmol/L (136-145)
--- NOTE | 2018-01-16 09:20 | PN ---
Progress Note (short form) - Note Progress Note: Wound VAC papers filled out and placed in patient's chart. While patient remains in-house, wound VAC ordered to be changed T-TH-Sat Cont medical management No further surgical intervention. On behalf of Dr. Negro, thank you for the opportunity to participate in your patient's care.
[2018-01-16] MEDS ORDERED: OXcarbazepine 300 MG TABLET (UD) PO SCH (10:00)
--- NOTE | 2018-01-16 11:29 | PN ---
Progress Note (short form) - Note Progress Note: seen and examined in room wound vac is in place arrangements for home wound care in process Vital Signs Period Temp Pulse Resp BP Sys/Pedroza Pulse Ox Last 24 Hr 98.3 F-99.8 F 69-74 18-20 129-147/50-76 95 neck supple heart s1/S2 lung clear abd soft groin left - wound vac in place - system working appropriately ext right leg edema - unchanged CBC, BMP 01/16/18 06:15 01/16/18 06:15 Microbiology 01/10/18 19:58 Blood - Peripheral Venous Blood Culture - Final NO GROWTH AFTER 5 DAYS INCUBATION 01/10/18 19:58 Blood - Peripheral Venous Blood Culture - Final NO GROWTH AFTER 5 DAYS INCUBATION 01/11/18 12:45 Ulcer Gram Stain - Final 01/11/18 12:45 Ulcer Wound Culture - Final Pseudomonas Aeruginosa Pseudomonas Aeruginosa#3 Enterococcus Faecalis Beta Hem Streptococcus Group G Mr S Aureus 01/10/18 07:30 Urine - Urine Clean Catch Urine Culture - Final Contaminated: Please Repeat Active Medications Acetaminophen/Codeine Phosphate (Tylenol # 3 -) 1 tab PO Q6H PRN PRN Reason: PAIN LEVEL 1-5 Last Admin: 01/15/18 07:50 Dose: 1 tab Gabapentin (Neurontin -) 200 mg PO TID [facility] Last Admin: 01/16/18 05:43 Dose: 200 mg Oxcarbazepine (Trileptal -) 600 mg PO BID [facility] Last Admin: 01/16/18 10:01 Dose: 600 mg # vulvar cancer s/p resection and reconstriction open / infected wound left groin ----improved continue wound care / neuropathic pain with cleaning -- will add gabapentin vacuum in place -- awaiting home care arrangements # htn trend bp # seizure trileptil
[2018-01-16 15:52] VITALS: BP 146/78; PULSE 73; TEMP 100.1
--- NOTE | 2018-01-16 16:27 | DS ---
Physical Examination Vital Signs: Vital Signs Temperature 100.1 F H 01/16/18 13:25 Pulse Rate 73 01/16/18 13:25 Respiratory Rate 16 01/16/18 13:25 Blood Pressure 146/78 01/16/18 13:25 O2 Sat by Pulse Oximetry (%) 95 01/15/18 21:00 Findings/Remarks: 67year old female with vulvar cancer s/p resection 2015, recent groin lymph node resection 2017, hospitalized in November at [facility] for wound infection now admitted for recurrent infection to site -- reports fever of 102 day prior to admission. SHe states her son has been packing her wound at home / once he noted foul smell and icreased d/c from site brought her to ER. [facility] was contacted for transfer but declined as not surgical intervention needed at this time. Colleen was admitted cultured and ABX tx initiated. ID and surgical consult obtained -- wound clean and wound vac initiated for continued wound care at home . Patient was d/c home in stable conditions -- instructions given by me in mexican / instructed and advised regarding compliance with home wound care. # vulvar cancer s/p resection and reconstruction open / infected wound left groin ----improving continue wound care awaiting placement of wound vac added Gabapentin with no improvement # htn trend bp disposition # seizure trileptil Constitutional: Yes: Well Nourished, Mild Distress (due to pain to left groin and swollen left leg wound vac in place) Eyes: Yes: Conjunctiva Clear, EOM Intact HENT: Yes: Atraumatic, Normocephalic Neck: Yes: Supple, Trachea Midline Cardiovascular: Yes: Regular Rate and Rhythm Respiratory: Yes: Regular, CTA Bilaterally Gastrointestinal: Yes: Normal Bowel Sounds, Soft ...Rectal Exam: Yes: WNL, Deferred Renal/: Yes: WNL Breast(s): Yes: WNL Musculoskeletal: Yes: WNL Edema: No Edema: LLE: 2+ (lymphangitis groin to toes) Peripheral Pulses WNL: Yes Integumentary: Yes: WNL Wound/Incision: Yes: Unapproximated, Other (wound vac in place open wound left groin) ...Motor Strength: WNL Psychiatric: Yes: Alert, Oriented Labs: CBC, BMP 01/16/18 06:15 01/16/18 06:15 Discharge Summary Reason For Visit: LOCL INFECTION IN WOUND Current Active Problems Fever (Acute) Hypertension (Acute) Seizures (Acute) Wound infection (Acute) Condition: Stable - Instructions Referrals: Noelle Joyner MD [Primary Care Provider] - Pavan Negro MD [Staff Physician] - - Home Medications Comprehensive Discharge Medication List: Ambulatory Orders Oxcarbazepine [Trileptal -] 600 mg PO BID tablet 01/16/18 Oxcarbazepine [Trileptal Susp 300 mg/5 mL -] 600 mg PO BID ml 01/16/18
== END 2018-01-16 18:30 | disposition home health service (06) | DRG 863 ==
LOC: JER 18:23 → JERBED 21:44 → J8W 01-11 13:11
PROVIDERS: ADMIT Family Medicine; ATTEND Family Medicine
DX: T81.4XXA Infection following a procedure, initial encounter (principal); Y83.9 Surgical procedure, unspecified as the cause of abnormal reaction of the patient, or of later complication, without mention of misadventure at the time of the procedure; I10 Essential (primary) hypertension; R56.9 Unspecified convulsions
CPT/HCPCS: 36415; 71045-TC-FY; 80048; 80053; 81003; 81015; 82803; 83605; 83735; 84484; 85025; 85610; 85730; 87040; 87070; 87086; 87186; 87205; 93005; 93010; 93970-TC; 99285-25; J0131; J7030

== ENCOUNTER 2018-01-19 17:59 | Inpatient (IN) | payer OTHER ==
--- NOTE | 2018-01-19 18:28 | PDOC ---
History of Present Illness - General Stated Complaint: WOUND INFECTION - History of Present Illness Initial Comments: 01/19/18 18:17 67 yo F with h/o seizure disorder and vuvlar ca. s/p resection (10/2015), recent groin lymph node resection (10/2017 [facility] [address]. Koffi Robins) chronic non healing wound in left groin BIBA with fever. Reports stable chronic pain at left groin wound site. Denies increased swelling, although patient with stable RLE swelling at baseline. Denies N/V, CP, cough, hemoptysis, SOB, abdominal pain, diarrhea, constipation, urinary complaints, weakness, lightheadedness, sensory changes. Patient has home wound vac following d/c following recent [facility] admission (01/10-01/16/18). Negative blood cultures. Wound cultures grew out pseudomonas aeurguinosa. enterococcus faecalis, MRSA, and beta hemolytic strep. Limited study of BL LE ( 01/10), with no evidence of BL DVT. Patient Study Director/Onc physician contacted on previous admission Dr. Guerrero who was contacted upon recent ED admission (01/10) and reported that patient has chronic wound with cancer not amenable to surgery.Dr. Koffi Robins (surgeon) [phone] PMHx: as noted above Dr. Tk RICHARD seen while in ED upon recent admission ROS: as noted above SHx: Denies Etoh, tobacco, IVDA. Allergies: NKDA PMD: Dr. Joyner Past History - Past Medical History Allergies/Adverse Reactions: Allergies Allergy/AdvReac Type Severity Reaction Status Date / Time No Known Allergies Allergy Verified 01/19/18 18:23 Home Medications: Ambulatory Orders Oxcarbazepine [Trileptal -] 600 mg PO BID tablet 01/16/18 Acetaminophen [Tylenol .Regular Strength -] 650 mg PO Q4H PRN tablet 01/25/18 Docusate Sodium [Colace -] 100 mg PO BID capsule 01/25/18 Doxycycline Hyclate [Vibramycin -] 100 mg PO BID@1000,1800 14 Days #30 capsule 01/25/18 FENTANYL 25mcg PATCH [DURAGESIC 25mcg PATCH -] 1 patch TD Q72H 6 Days #2 patch.td72 MDD 25mcg/3d 01/25/18 Fentanyl Patch Waste [Duragesic Patch Waste] 1 each TD PRN PRN each 05/25/18 Gabapentin [Neurontin -] 300 mg PO TID 30 Days #90 capsule 01/25/18 Oxcarbazepine [Trileptal -] 600 mg PO BID tablet 01/25/18 Silver Sulfadiazine 1% Top Cr [Silvadene -] 1 applic TP BID 30 Days #400 jar Sodium Hypochlorite [Dakin's Solution 0.25% (Half-Strength) -] 1 applic TP BID ml 01/25/18 levoFLOXacin [Levaquin -] 500 mg PO DAILY@0600 14 Days #14 tablet 01/25/18 oxyCODONE HCL [Roxicodone -] 5 mg PO Q12H PRN 7 Days #14 tablet MDD 10mg Cancer: Yes (VULVAR -S/P SX, WOUND VAC ON) COPD: No HTN: Yes Seizures: Yes - Surgical History GI Surgery: Yes (VULVAR -S/P SX, WOUND VAC ON) - Suicide/Smoking/Psychosocial Hx Smoking History: Never smoked Have you smoked in the past 12 months: No Hx Alcohol Use: No Drug/Substance Use Hx: No Substance Use Type: None Hx Substance Use Treatment: No Review of Systems - Review of Systems Comments:: 01/19/18 18:18 GENERAL/CONSTITUTIONAL: No fever or chills. No weakness. HEAD, EYES, EARS, NOSE AND THROAT: No change in vision. No ear pain or discharge. No sore throat. CARDIOVASCULAR: No chest pain or shortness of breath RESPIRATORY: No cough, wheezing, or hemoptysis. GASTROINTESTINAL: No nausea, vomiting, diarrhea or constipation. GENITOURINARY: No dysuria, frequency, or change in urination. MUSCULOSKELETAL: No joint or muscle swelling or pain. No neck or back pain. SKIN: L sided groin wound. No rash NEUROLOGIC: No headache, vertigo, loss of consciousness, or change in strength/ sensation. ENDOCRINE: No increased thirst. No abnormal weight change HEMATOLOGIC/LYMPHATIC: No anemia, easy bleeding, or history of blood clots. ALLERGIC/IMMUNOLOGIC: No hives or skin allergy. *Physical Exam - Physical Exam Comments: 01/19/18 18:18 GENERAL: Awake, alert, and fully oriented, in no acute distress HEAD: No signs of trauma, normocephalic, atraumatic EYES: PERRLA, EOMI, sclera anicteric, conjunctiva clear ENT: Auricles normal inspection, hearing grossly normal, nares patent, oropharynx clear without exudates. Moist mucosa NECK: Normal ROM, supple, no lymphadenopathy, JVD, or masses LUNGS: No distress, speaks full sentences, clear to auscultation bilaterally HEART: Regular rate and rhythm, normal S1 and S2, no murmurs, rubs or gallops, peripheral pulses normal and equal bilaterally. ABDOMEN: Soft, nontender, normoactive bowel sounds. No guarding, no rebound. No masses EXTREMITIES :BL LE edema L>R. Normal range of motion, No clubbing or cyanosis. SKIN: Left groin with [id number] deep, packed, odorous, ulceration with sanguineous drainage ED Treatment Course - LABORATORY CBC & Chemistry Diagram: 01/25/18 07:00 01/25/18 07:00 Medical Decision Making - Medical Decision Making 01/19/18 19:18 67 yo F with h/o seizure disorder and vuvlar ca. s/p resection (10/2015), recent groin lymph node resection (10/2017 [facility] [address]. Koffi Robins) chronic non healing wound in left groin BIBA with fever. 2/4 SIRS criteria Temp 102.2 and HR 108, stable Left groin wound (recent wound vac), and stable RLE edema. No home antibiotic coverage. Will assess for electrolyte abnml, toxic or metabolic derangements,acid-base disturbances, or underlying infection. Will initiate sepsis protocol. ED Course: Vanc 1000mg, Zosyn 4.5 01/19/18 20:02 Lactic acid: 2.4 01/19/18 20:05 WBC: 14.6 01/19/18 20:57 EKG: Sinus tach, with nml interval duration and axis. *DC/Admit/Observation/Transfer Diagnosis at time of Disposition: Fever - Discharge Dispostion Disposition[facility] Condition at time of disposition: Guarded Decision to Admit order: Yes - Prescriptions - Referrals - Patient Instructions - Post Discharge Activity
--- NOTE | 2018-01-19 18:33 | PDOC ---
Attending Attestation - Resident Resident Name: Edwin Hernandez - ED Attending Attestation I have performed the following: I have examined & evaluated the patient, The case was reviewed & discussed with the resident, I agree w/resident's findings & plan, Exceptions are as noted - HPI HPI: 01/19/18 20:06 Ms Johnnie Leos is a 67 yo F h/o seizure d/o, vulvar cancer s/p resection, s/p recent lymph node dissection in October. She presents to the ER with a complaint of fever and chronic leg pain Swelling that is now present is chronically there Allergies: NKDA PMD: Dr. Joyner - Physicial Exam PE: 01/19/18 20:20 On examination pt is awake and alert, answers questions appropriately Left groin with large wound Left leg edematous, warm, tender to palpation, erythematous - Medical Decision Making 01/19/18 20:22 Pt presents to the ER febrile with left lower extremity edema pt has had these symptoms in the past (cultures grew multiple organisms), previously treated with Vancomycin and Zosyn Will do: Labs Cultures IV tylenol consider duplex (pt has had this in the past, limited study given wound location but negative) Vancomycin and Zosyn Will admit 01/20/18 00:47 Laboratory Tests 01/19/18 01/19/18 01/19/18 19:09 19:09 19:15 WBC 14.6 H D Hgb 10.6 L Hct 32.7 Plt Count 410 BUN 21 H Creatinine 1.0 Lactic Acid 2.4 H* AST 88 H ALT 116 H Clinical Impression: cellulitis, repeat presentation Fever, repeat presentation
[2018-01-19] MEDS ORDERED: PIPERACILLIN/TAZOB 4.5 GM 4.5 GM in DEXTROSE 5%-WATER 100 ML IVPB ONE (18:49)
[2018-01-19] MEDS ORDERED: VANCOMYCIN 1 GM PREMIX - 1 GM/200 ML BAG IVPB ONE (18:49)
[2018-01-19] MEDS ORDERED: PIPERACILLIN/TAZOB 4.5 GM 4.5 GM/100 ML BAG IVPB ONE (19:00)
[2018-01-19] MEDS ORDERED: VANCOMYCIN 1 GRAM (PRE-DOCKED) 1,000 MG/250 ML BAG IVPB ONE (19:00)
[2018-01-19] MEDS ORDERED: ACETAMINOPHEN 1000 MG/100 ML VIAL (NON FORMULARY) IVPB ONE (19:04)
[2018-01-19] MEDS ORDERED: ACETAMINOPHEN INJECTION 100 ML IVPB ONE (19:20)
[2018-01-19 19:26] LABS: BASO % 0.5 % (0-2.0); EOS % 0.4 % (0-4.5); HEMATOCRIT 32.7 % (32.4-45.2); HEMOGLOBIN 10.6 GM/dL (10.7-15.3); LYMPH % 9.3 % (8-40); MCH 25.6 pg (25.7-33.7); MCHC 32.4 g/dl (32.0-36.0); MEAN PLT VOLUME 7.5 fl (7.5-11.1); MONO % 7.6 % (3.8-10.2); NEUT % 82.2 % (42.8-82.8); PLATELET COUNT 410 K/MM3 (134-434); RBC 4.14 M/mm3 (3.60-5.2); WHITE BLOOD COUNT 14.6 K/mm3 (4.0-10.0)
[2018-01-19 19:38] LABS: INR 1.05 (0.82-1.09); PROTHROMBIN TIME (PATIENT) 11.9 SEC (9.7-13.0)
[2018-01-19 19:41] LABS: ACTIVATED PTT 20.8 SECONDS (26.9-34.4)
[2018-01-19 19:49] LABS: ALBUMIN 2.6 g/dl (3.4-5.0); ALK PHOS 316 U/L (45-117); ANION GAP 7 (8-16); BILIRUBIN,TOTAL 0.3 mg/dL (0.2-1.0); BLOOD UREA NITROGEN 21 mg/dL (7-18); CALCIUM 8.6 mg/dL (8.5-10.1); CHLORIDE 99 mmol/L (98-107); CO2 29 mmol/L (21-32); GLUCOSE,RANDOM 112 mg/dL (74-106); POTASSIUM 3.9 mmol/L (3.5-5.1); SGOT/AST 88 U/L (15-37); SGPT/ALT 116 U/L (12-78); SODIUM 135 mmol/L (136-145); TOT PROT 8.3 g/dl (6.4-8.2)
[2018-01-19 20:44] LABS: URINE APPEARANCE CLEAR; URINE BILIRUBIN NEGATIVE (<2.0 mg/dL); URINE COLOR YELLOW; URINE GLUCOSE (UA) NEGATIVE (NEGATIVE); URINE KETONE NEGATIVE (NEGATIVE); URINE NITRITE NEGATIVE (NEGATIVE); URINE UROBILINOGEN NEGATIVE mg/dL (0.2-1.0)
[2018-01-19 20:47] LABS: URINE LEUK ESTERASE 1+ (NEGATIVE); URINE PROTEIN 1+ (NEGATIVE)
[2018-01-19 20:48] LABS: EPI CELLS RARE /HPF (FEW); URINE MUCUS RARE
[2018-01-20 03:00] VITALS: BMI 24.7
[2018-01-20] MEDS ORDERED: ACETAMINOPHEN 325 MG TABLET (FP) ONE (06:36)
[2018-01-20] MEDS: ACETAMINOPHEN 325 MG TABLET (FP) PO PRN ×2 (06:40→16:33)
--- NOTE | 2018-01-20 09:28 | PN ---
Progress Note, Physician Chief Complaint: ID Patient just left and was sen by Dr Frey Apparently had VAC dressing placed last admission January week ago Returns now with fever to 102 and complains of severe pain and "electricity "in the left leg which is chronically swollen - Current Medication List Current Medications: Active Medications Acetaminophen (Tylenol -) 650 mg PO Q4H PRN PRN Reason: FEVER Last Admin: 01/20/18 06:40 Dose: 650 mg Oxcarbazepine (Trileptal -) 600 mg PO BID LUCY - Objective Vital Signs: Vital Signs Temperature 102.2 F H 01/20/18 06:28 Pulse Rate 96 H 01/20/18 06:28 Respiratory Rate 18 01/20/18 06:28 Blood Pressure 136/55 01/20/18 06:28 O2 Sat by Pulse Oximetry (%) 97 01/20/18 01:16 Constitutional: Yes: No Distress HENT: Yes: WNL, Atraumatic Neck: Yes: WNL, Supple Cardiovascular: Yes: Regular Rate and Rhythm, S1, S2. No: Murmur Respiratory: Yes: WNL, Regular, CTA Bilaterally Gastrointestinal: Yes: WNL, Normal Bowel Sounds, Soft. No: Tenderness, Tenderness, Rebound Extremities: Yes: Other (Large open wound left groin very painful and draining) Edema: Yes (Diffuse swelling left leg) Labs: CBC, BMP 01/19/18 19:09 01/19/18 19:09 INR, PTT INR 1.05 (0.82-1.09) 01/19/18 19:09 Problem List - Problems (1) Fever Code(s): R50.9 - FEVER, UNSPECIFIED (2) Wound infection Code(s): T14.8XXA - OTHER INJURY OF UNSPECIFIED BODY REGION, INITIAL ENCOUNTER; L08.9 - LOCAL INFECTION OF THE SKIN AND SUBCUTANEOUS TISSUE, UNSP (3) Elevated LFTs Code(s): R79.89 - OTHER SPECIFIED ABNORMAL FINDINGS OF BLOOD CHEMISTRY (4) MRSA (methicillin resistant staph aureus) culture positive Code(s): Z22.322 - CARRIER OR SUSPECTED CARRIER OF METHICILLIN RESIS STAPH Assessment/Plan Microbiology 01/11/18 12:45 Ulcer Gram Stain - Final 01/11/18 12:45 Ulcer Wound Culture - Final Pseudomonas Aeruginosa Pseudomonas Aeruginosa#3 Enterococcus Faecalis Beta Hem Streptococcus Group G Mr S Aureus 01/10/18 19:58 Blood - Peripheral Venous Blood Culture - Final NO GROWTH AFTER 5 DAYS INCUBATION 01/10/18 19:58 Blood - Peripheral Venous Blood Culture - Final NO GROWTH AFTER 5 DAYS INCUBATION Laboratory Tests 01/19/18 01/19/18 01/19/18 19:09 19:09 19:15 WBC 14.6 H D Hgb 10.6 L Hct 32.7 Plt Count 410 BUN 21 H Creatinine 1.0 Creat Clearance w eGFR 55.47 Lactic Acid 2.4 H* AST 88 H ALT 116 H Alkaline Phosphatase 316 H Ur Leukocyte Esterase Urine WBC (Auto) 01/19/18 20:37 WBC Hgb Hct Plt Count BUN Creatinine Creat Clearance w eGFR Lactic Acid AST ALT Alkaline Phosphatase Ur Leukocyte Esterase 1+ H Urine WBC (Auto) 9 Assessment Infected groin wound with fever 102 MRSA colonization previous Elevated LFTs ? Plan Isolate MRSA Vancomycin and Zosyn CRP CT imaging groin Sonogram liver Dr Negro to see Jeremy VILLARREAL
[2018-01-20] MEDS ORDERED: morphine SULFATE 4 MG/ML VIAL IVPUSH ONE (10:38)
[2018-01-20] MEDS ORDERED: PT OWN MED DRAWER 7, Y5N ONE (10:39)
[2018-01-20] MEDS ORDERED: PIPERACILLIN/TAZOBACTAM 4.5 GM VIAL IVPB ONE ×2 (10:40→17:01)
[2018-01-20] MEDS ORDERED: DEXTROSE 5%-WATER 100 ML IVPB ONE ×2 (10:40→17:01)
[2018-01-20] MEDS ORDERED: morphine SULFATE 4 MG/ML VIAL ONE (10:45)
[2018-01-20] MEDS: OXcarbazepine 300 MG TABLET (UD) PO SCH ×2 (10:51→22:41)
[2018-01-20] MEDS: PIPERACILLIN/TAZOB 4.5 GM 4.5 GM in DEXTROSE 5%-WATER 100 ML IVPB SCH ×2 (10:52→17:04)
[2018-01-20] MEDS: VANCOMYCIN 1,000 MG in DEXTROSE 5%-WATER - 250 ML IVPB SCH ×2 (12:09→22:43)
[2018-01-20] MEDS: DOCUSATE SODIUM 100 MG CAPSULE (FP) PO SCH (22:41)
[2018-01-21] MEDS ORDERED: DEXTROSE 5%-WATER 100 ML IVPB ONE ×3 (00:21→17:10)
[2018-01-21] MEDS ORDERED: PIPERACILLIN/TAZOBACTAM 4.5 GM VIAL IVPB ONE ×3 (00:21→17:10)
[2018-01-21] MEDS: PIPERACILLIN/TAZOB 4.5 GM 4.5 GM in DEXTROSE 5%-WATER 100 ML IVPB SCH ×3 (01:42→17:43)
[2018-01-21 07:31] LABS: BASO % 0.6 % (0-2.0); EOS % 6.5 % (0-4.5); HEMATOCRIT 30.7 % (32.4-45.2); HEMOGLOBIN 10.1 GM/dL (10.7-15.3); LYMPH % 9.8 % (8-40); MCH 25.9 pg (25.7-33.7); MCHC 32.8 g/dl (32.0-36.0); MEAN CELL VOLUME 79.1 fl (80-96); MEAN PLT VOLUME 7.8 fl (7.5-11.1); MONO % 9.6 % (3.8-10.2); NEUT % 73.5 % (42.8-82.8); PLATELET COUNT 389 K/MM3 (134-434); RBC 3.88 M/mm3 (3.60-5.2); RDW 15.1 % (11.6-15.6); WHITE BLOOD COUNT 10.3 K/mm3 (4.0-10.0)
[2018-01-21 08:12] LABS: ALBUMIN 2.1 g/dl (3.4-5.0); ANION GAP 7 (8-16); BLOOD UREA NITROGEN 22 mg/dL (7-18); CALCIUM 8.5 mg/dL (8.5-10.1); CHLORIDE 103 mmol/L (98-107); CO2 28 mmol/L (21-32); GLUCOSE,RANDOM 101 mg/dL (74-106); MAGNESIUM 2.3 mg/dL (1.8-2.4); POTASSIUM 3.9 mmol/L (3.5-5.1); SGOT/AST 161 U/L (15-37); SODIUM 138 mmol/L (136-145)
[2018-01-21 08:15] LABS: ALK PHOS 329 U/L (45-117); BILIRUBIN,TOTAL 0.5 mg/dL (0.2-1.0); CREATININE 0.8 mg/dL (0.55-1.02); SGPT/ALT 183 U/L (12-78)
--- NOTE | 2018-01-21 09:16 | HP ---
Admitting History and Physical - Admission Chief Complaint: fever / chills for 0ne day History of Present Illness: Ms Johnnie Leos is a 67 yo F h/o seizure d/o, vulvar cancer s/p resection, s/p recent lymph node dissection in October. She presents to the ER with a complaint of fever and chronic leg pain Swelling that is now present is chronic since surgery. Patient [facility] she was treated for possible wound infection and discharged with wound vac in place and services for follow up. 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) ...: No Heme/Onc: Yes: Cancer (vulvar s/p resection and reconstruction) Additional Past Medical History: seizure disroder - Past Surgical History Additional Past Surgical History: vulvar cancer -- s/p resection and reconstruction at [facility] - Smoking History Smoking history: Never smoked Have you smoked in the past 12 months: No - Alcohol/Substance Use Hx Alcohol Use: No - Social History Usual Living Arrangement: Yes: With Child ADL: Independent History of Recent Travel: No Home Medications - Allergies Allergies/Adverse Reactions: Allergies Allergy/AdvReac Type Severity Reaction Status Date / Time No Known Allergies Allergy Verified 01/19/18 18:23 - Home Medications Home Medications: Ambulatory Orders Oxcarbazepine [Trileptal -] 600 mg PO BID tablet 01/16/18 Review of Systems - Review of Systems Constitutional: reports: Chills, Fever. denies: Night Sweats, Unintentional Wgt. Loss Eyes: reports: No Symptoms HENT: reports: No Symptoms Neck: reports: No Symptoms Cardiovascular: reports: Edema (leg left chronic 2/2 to groin open wound). denies: Chest Pain, Palpitations Respiratory: reports: No Symptoms Gastrointestinal: reports: No Symptoms Genitourinary: reports: No Symptoms Breasts: reports: No Symptoms Reported Musculoskeletal: reports: No Symptoms Integumentary: reports: No Symptoms Neurological: reports: No Symptoms Endocrine: reports: No Symptoms Hematology/Lymphatic: reports: No Symptoms Psychiatric: reports: No Symptoms Physical Examination Vital Signs: Vital Signs Temperature 98.2 F 01/21/18 06:32 Pulse Rate 78 01/21/18 06:32 Respiratory Rate 18 01/21/18 06:32 Blood Pressure 118/62 01/21/18 06:32 O2 Sat by Pulse Oximetry (%) 97 01/20/18 21:00 Constitutional: Yes: Well Nourished, No Distress, Calm Eyes: Yes: WNL HENT: Yes: WNL Neck: Yes: WNL Cardiovascular: Yes: WNL, Regular Rate and Rhythm Respiratory: Yes: Regular, CTA Bilaterally Gastrointestinal: Yes: Normal Bowel Sounds, Soft ...Rectal Exam: Yes: Deferred Renal/: Yes: WNL Breast(s): Yes: WNL Musculoskeletal: Yes: Joint Swelling (left lower Ext) Extremities: Yes: Other (lymphdema left lower Ext) Edema: Yes Edema: LLE: 3+ Peripheral Pulses WNL: Yes Wound/Incision: Yes: Other (open wound to left groin / packing with gauze in place) Neurological: Yes: Alert, Oriented ...Motor Strength: WNL Psychiatric: Yes: Alert, Oriented Labs: CBC, BMP 01/21/18 06:15 01/21/18 06:15 Problem List - Problems (1) Fever Code(s): R50.9 - FEVER, UNSPECIFIED (2) Fever Code(s): R50.9 - FEVER, UNSPECIFIED (3) Postoperative wound infection Code(s): T81.4XXA - INFECTION FOLLOWING A PROCEDURE, INITIAL ENCOUNTER (4) MRSA (methicillin resistant staph aureus) culture positive Code(s): Z22.322 - CARRIER OR SUSPECTED CARRIER OF METHICILLIN RESIS STAPH (5) Elevated LFTs Code(s): R79.89 - OTHER SPECIFIED ABNORMAL FINDINGS OF BLOOD CHEMISTRY (6) Seizures Code(s): R56.9 - UNSPECIFIED CONVULSIONS
[2018-01-21] MEDS ORDERED: PT OWN MED DRAWER 7, Y5N ONE ×2 (09:54→12:15)
[2018-01-21] MEDS: DOCUSATE SODIUM 100 MG CAPSULE (FP) PO SCH ×2 (10:11→23:53)
[2018-01-21] MEDS: OXcarbazepine 300 MG TABLET (UD) PO SCH ×2 (10:11→23:55)
[2018-01-21] MEDS: ACETAMINOPHEN 325 MG TABLET (FP) PO PRN ×2 (10:12→17:16)
[2018-01-21] MEDS: VANCOMYCIN 1,000 MG in DEXTROSE 5%-WATER - 250 ML IVPB SCH ×2 (12:21→23:55)
--- NOTE | 2018-01-21 14:06 | PN ---
Progress Note (short form) - Note Progress Note: 67yo F h/o vulvar cancer s/p Lt inguinal lymph node disection with chronic wound formation, was admitted to the hospital for fever and leg pain. Pt is known to the vascular service and was seen last week and had Vac dressing placed. Pt was discharged home with VNS and home wound vac. Pt currently afebrile, but still complaining of diffuse Lt leg pain. Pt is an inconsistent historian, but had previous wound care treatment at [facility], but pt reported to be noncompliant at times with treatment. PE: General: A&O x3, sitting comfortably Pelvis: large Left inguinal wound presents with mild tenderness with palpation around the wound as well as serous drainage, packing in place. Ext: Left leg +2 edema, Problem List - Problems (1) Postoperative wound infection Assessment/Plan: 67yo F s/p Lt inguinal lymph node dissection with chronic Left groin wound, concern for cellulitis -would continue VAC dressing. -abx per ID -Pain control -Plastic surgery consult to evaluate for any other interventions -will continue to follow and place VAC dressing once materials obtained. Case discussed with Dr. Julius Negro, who agrees with plan. Code(s): T81.4XXA - INFECTION FOLLOWING A PROCEDURE, INITIAL ENCOUNTER
--- NOTE | 2018-01-21 16:11 | PN ---
Progress Note, Physician History of Present Illness: C/O pain L groin Febrile past 24hr Wound c/s growing mixed organisms WBC improved - Current Medication List Current Medications: Active Medications Acetaminophen (Tylenol -) 650 mg PO Q4H PRN PRN Reason: FEVER Last Admin: 01/21/18 10:12 Dose: 650 mg Docusate Sodium (Colace -) 100 mg PO BID [facility] Last Admin: 01/21/18 10:11 Dose: 100 mg Vancomycin HCl 1,000 mg/ (Dextrose) 250 mls @ 166.667 mls/hr IVPB Q12H [facility] PRN Reason: Protocol Last Admin: 01/21/18 12:21 Dose: 166.667 mls/hr Piperacillin Sod/Tazobactam (Sod 4.5 gm/ Dextrose) 100 mls @ 200 mls/hr IVPB Q8H-IV [facility] PRN Reason: Protocol Last Admin: 01/21/18 10:11 Dose: 200 mls/hr Oxcarbazepine (Trileptal -) 600 mg PO BID [facility] Last Admin: 01/21/18 10:11 Dose: 600 mg - Objective Vital Signs: Vital Signs Temperature 99.2 F 01/21/18 15:00 Pulse Rate 82 01/21/18 15:00 Respiratory Rate 22 01/21/18 15:00 Blood Pressure 117/81 01/21/18 15:00 O2 Sat by Pulse Oximetry (%) 96 01/21/18 09:00 Constitutional: Yes: No Distress Cardiovascular: Yes: Regular Rate and Rhythm, S1, S2 Respiratory: Yes: CTA Bilaterally Gastrointestinal: Yes: Normal Bowel Sounds, Soft Extremities: Yes: Other (L groin wound packed with surrounding erythema) Labs: CBC, BMP 01/21/18 06:15 01/21/18 06:15 INR, PTT INR 1.05 (0.82-1.09) 01/19/18 19:09 Assessment/Plan Infected L groin wound- polymicrobial Vulva ca Hx MRSA Await c/s , CT result Continue zosyn/ vancomycin
[2018-01-21] MEDS: fentaNYL 25mcg/hr PATCH.TD72 TD SCH (18:11)
--- NOTE | 2018-01-21 20:14 | PN ---
Progress Note (short form) - Note Progress Note: seen and examine in room admits uncomfortable with wound vac at home so she woud remove it in her opinion "the wound vac only makes things worse" so she will take it off ! remarks the wound vac makes her leg swell up more I have explained the benefits of wound vac / and continued wound care -- I have encouraged NH for continued wound care --she is agreeable\\ Vital Signs Period Temp Pulse Resp BP Sys/Pedroza Pulse Ox Last 24 Hr 98.2 F-100.2 F 78-89 18-22 117-136/60-81 96-97 neck supple heart S1/S2 lungs clear bilat abd soft / no tenderness left groin packing gauze in place ++ swelling left leg + pulse CBC, BMP 01/21/18 06:15 01/21/18 06:15 Microbiology 01/19/18 19:09 Blood - Peripheral Venous Blood Culture - Preliminary NO GROWTH OBTAINED AFTER 48 HOURS, INCUBATION TO CONTINUE FOR 3 DAYS. 01/19/18 19:09 Blood - Peripheral Venous Blood Culture - Preliminary NO GROWTH OBTAINED AFTER 48 HOURS, INCUBATION TO CONTINUE FOR 3 DAYS. 01/19/18 23:50 Abscess Gram Stain - Final 01/19/18 23:50 Abscess Wound Culture - Preliminary Presumptive Ps Aeruginosa Proteus Species Staphylococcus Latex Coag Pos 01/19/18 20:37 Urine - Urine Clean Catch Urine Culture - Final Contaminated: Please Repeat Active Medications Acetaminophen (Tylenol -) 650 mg PO Q4H PRN PRN Reason: FEVER Last Admin: 01/21/18 17:16 Dose: 650 mg Docusate Sodium (Colace -) 100 mg PO BID [facility] Last Admin: 01/21/18 10:11 Dose: 100 mg Fentanyl (Duragesic 25mcg Patch -) 1 patch TD Q72H [facility] Last Admin: 01/21/18 18:11 Dose: 1 patch Vancomycin HCl 1,000 mg/ (Dextrose) 250 mls @ 166.667 mls/hr IVPB Q12H [facility] PRN Reason: Protocol Last Admin: 01/21/18 12:21 Dose: 166.667 mls/hr Piperacillin Sod/Tazobactam (Sod 4.5 gm/ Dextrose) 100 mls @ 200 mls/hr IVPB Q8H-IV [facility] PRN Reason: Protocol Last Admin: 01/21/18 17:43 Dose: 200 mls/hr Miscellaneous (Duragesic Patch Waste) 1 each TD PRN PRN PRN Reason: REMOVAL/WASTE Oxcarbazepine (Trileptal -) 600 mg PO BID [facility] Last Admin: 01/21/18 10:11 Dose: 600 mg Oxycodone HCl (Roxicodone -) 5 mg PO DAILY PRN PRN Reason: PRIOR TO DRESSING CHANGE Assessment # Fever surgical wound infection MRSA colonozation previously ID opinion surgical opinion for wound care awaiting CT of groin abx / pain management disposition -- DC for wound care /will discuss with sample case porter Problem List - Problems (1) Fever Code(s): R50.9 - FEVER, UNSPECIFIED (2) Fever Code(s): R50.9 - FEVER, UNSPECIFIED (3) Postoperative wound infection Code(s): T81.4XXA - INFECTION FOLLOWING A PROCEDURE, INITIAL ENCOUNTER (4) MRSA (methicillin resistant staph aureus) culture positive Code(s): Z22.322 - CARRIER OR SUSPECTED CARRIER OF METHICILLIN RESIS STAPH (5) Elevated LFTs Code(s): R79.89 - OTHER SPECIFIED ABNORMAL FINDINGS OF BLOOD CHEMISTRY (6) Seizures Code(s): R56.9 - UNSPECIFIED CONVULSIONS
--- NOTE | 2018-01-22 00:29 | EKG ---
Test Reason : Blood Pressure : / mmHG Vent. Rate : 105 BPM Atrial Rate : 105 BPM P-R Int : 124 ms QRS Dur : 078 ms QT Int : 344 ms P-R-T Axes : 043 028 031 degrees QTc Int : 454 ms SINUS TACHYCARDIA ABNORMAL ECG WHEN COMPARED WITH ECG OF 10-JAN-2018 19:07, T WAVE VARIATION Confirmed by LULA VILLARREAL, GIANCARLO ([id number]) on 01/22/2018 12:28:51 AM Referred By: Confirmed By:GIANCARLO COTTON MD
[2018-01-22] MEDS ORDERED: PIPERACILLIN/TAZOBACTAM 4.5 GM VIAL IVPB ONE ×2 (01:13→09:28)
[2018-01-22] MEDS ORDERED: DEXTROSE 5%-WATER 100 ML IVPB ONE ×2 (01:13→09:28)
[2018-01-22] MEDS: PIPERACILLIN/TAZOB 4.5 GM 4.5 GM in DEXTROSE 5%-WATER 100 ML IVPB SCH ×2 (02:31→09:36)
[2018-01-22 08:14] LABS: BASO % 0.6 % (0-2.0); EOS % 7.6 % (0-4.5); HEMOGLOBIN 9.3 GM/dL (10.7-15.3); LYMPH % 11.3 % (8-40); MCH 26.2 pg (25.7-33.7); MCHC 33.3 g/dl (32.0-36.0); MEAN CELL VOLUME 78.5 fl (80-96); MEAN PLT VOLUME 7.7 fl (7.5-11.1); MONO % 8.4 % (3.8-10.2); NEUT % 72.1 % (42.8-82.8); PLATELET COUNT 388 K/MM3 (134-434); RBC 3.57 M/mm3 (3.60-5.2); RDW 14.7 % (11.6-15.6); WHITE BLOOD COUNT 8.8 K/mm3 (4.0-10.0)
[2018-01-22 08:42] LABS: CHLORIDE 102 mmol/L (98-107); POTASSIUM 3.8 mmol/L (3.5-5.1); SODIUM 137 mmol/L (136-145)
[2018-01-22] MEDS ORDERED: PT OWN MED DRAWER 7, Y5N ONE ×2 (09:28→21:13)
[2018-01-22] MEDS: OXcarbazepine 300 MG TABLET (UD) PO SCH ×2 (09:38→21:15)
[2018-01-22] MEDS: DOCUSATE SODIUM 100 MG CAPSULE (FP) PO SCH ×2 (09:38→21:15)
[2018-01-22 09:49] LABS: ALK PHOS 328 U/L (45-117); ANION GAP 10 (8-16); BILIRUBIN,TOTAL 0.8 mg/dL (0.2-1.0); BLOOD UREA NITROGEN 17 mg/dL (7-18); CALCIUM 8.2 mg/dL (8.5-10.1); CO2 25 mmol/L (21-32); CREATININE 0.8 mg/dL (0.55-1.02); GLUCOSE,RANDOM 98 mg/dL (74-106); SGOT/AST 117 U/L (15-37); SGPT/ALT 176 U/L (12-78); TOT PROT 6.6 g/dl (6.4-8.2)
[2018-01-22] MEDS: VANCOMYCIN 1,000 MG in DEXTROSE 5%-WATER - 250 ML IVPB SCH ×2 (11:12→23:22)
[2018-01-22] MEDS: oxyCODONE HCL 5 MG TABLET PO PRN ×2 (14:45→21:15)
--- NOTE | 2018-01-22 15:13 | PN ---
Progress Note (short form) - Note Progress Note: continues to have leg pain afebrile Vital Signs Period Temp Pulse Resp BP Sys/Pedroza Pulse Ox Last 24 Hr 98.4 F-99.2 F 78-84 18-20 126-132/55-88 96 wound still with superficial slough and some surrounding erythema leg is indurated CBC, BMP 01/22/18 06:30 01/22/18 06:30 wound culture mrsa acinetobacter/pseudomonas sensitive to cefepime (called micro) ct scan no abscess a/p d/w PMD fevers- resolved groin wound- history vulvar cancer with lymph node dissection would ask plastics to see her continue vancomycin- check trough in am switch to cefepime 1/2 hour spent examining wound, making calls to coordinate patient care
[2018-01-22] MEDS: CEFEPIME 2 GM in DEXTROSE 5%-WATER - 100 ML IVPB SCH (21:14)
[2018-01-22] MEDS: ACETAMINOPHEN 325 MG TABLET (FP) PO PRN (21:15)
[2018-01-23 08:00] LABS: BASO % 0.5 % (0-2.0); HEMATOCRIT 29.3 % (32.4-45.2); HEMOGLOBIN 9.7 GM/dL (10.7-15.3); LYMPH % 8.4 % (8-40); MCHC 32.9 g/dl (32.0-36.0); MEAN PLT VOLUME 7.6 fl (7.5-11.1); MONO % 8.2 % (3.8-10.2); NEUT % 74.9 % (42.8-82.8); PLATELET COUNT 443 K/MM3 (134-434); RBC 3.71 M/mm3 (3.60-5.2); RDW 14.9 % (11.6-15.6); WHITE BLOOD COUNT 8.9 K/mm3 (4.0-10.0)
[2018-01-23] MEDS ORDERED: PT OWN MED DRAWER 7, Y5N ONE (09:35)
[2018-01-23] MEDS: oxyCODONE HCL 5 MG TABLET PO PRN ×2 (09:45→21:35)
[2018-01-23] MEDS: ACETAMINOPHEN 325 MG TABLET (FP) PO PRN ×2 (09:46→21:34)
[2018-01-23] MEDS: OXcarbazepine 300 MG TABLET (UD) PO SCH ×2 (09:46→21:35)
[2018-01-23] MEDS: CEFEPIME 2 GM in DEXTROSE 5%-WATER - 100 ML IVPB SCH ×2 (09:46→21:35)
[2018-01-23] MEDS: DOCUSATE SODIUM 100 MG CAPSULE (FP) PO SCH ×2 (09:47→21:34)
--- NOTE | 2018-01-23 09:58 | PN ---
Progress Note (short form) - Note Progress Note: seen and examine in room case discussed with ID earlier -- will request Plastic's opinion patient feels all treatment to date has made wound "worse" she continues applying "home remedies" products obtained from "her country" ( [place]) I have reinforced SNF for wound care she remains accepting of decision I also discussed with her - we will be evaluated by plastics Vital Signs Period Temp Pulse Resp BP Sys/Pedroza Pulse Ox Last 24 Hr 98.2 F-100.2 F 78-89 18-22 117-136/60-81 96-97 neck supple heart S1/S2 lungs clear bilat abd soft / no tenderness left groin packing gauze in place ++ swelling left leg + pulse / painful to exam CBC, BMP 01/21/18 06:15 01/21/18 06:15 Microbiology 01/19/18 19:09 Blood - Peripheral Venous Blood Culture - Preliminary NO GROWTH OBTAINED AFTER 72 HOURS, INCUBATION TO CONTINUE FOR 2 DAYS. 01/19/18 19:09 Blood - Peripheral Venous Blood Culture - Preliminary NO GROWTH OBTAINED AFTER 72 HOURS, INCUBATION TO CONTINUE FOR 2 DAYS. 01/19/18 23:50 Abscess Gram Stain - Final 01/19/18 23:50 Abscess Wound Culture - Final Pseudomonas Aeruginosa Acinetobacter Baumannii/Haemol Mr S Aureus Staphylococcus Coagulase Neg 01/19/18 20:37 Urine - Urine Clean Catch Urine Culture - Final Contaminated: Please Repeat Active Medications Acetaminophen (Tylenol -) 650 mg PO Q4H PRN PRN Reason: FEVER Last Admin: 01/21/18 17:16 Dose: 650 mg Docusate Sodium (Colace -) 100 mg PO BID [facility] Last Admin: 01/21/18 10:11 Dose: 100 mg Fentanyl (Duragesic 25mcg Patch -) 1 patch TD Q72H [facility] Last Admin: 01/21/18 18:11 Dose: 1 patch Vancomycin HCl 1,000 mg/ (Dextrose) 250 mls @ 166.667 mls/hr IVPB Q12H [facility] PRN Reason: Protocol Last Admin: 01/21/18 12:21 Dose: 166.667 mls/hr Piperacillin Sod/Tazobactam (Sod 4.5 gm/ Dextrose) 100 mls @ 200 mls/hr IVPB Q8H-IV [facility] PRN Reason: Protocol Last Admin: 01/21/18 17:43 Dose: 200 mls/hr Miscellaneous (Duragesic Patch Waste) 1 each TD PRN PRN PRN Reason: REMOVAL/WASTE Oxcarbazepine (Trileptal -) 600 mg PO BID [facility] Last Admin: 01/21/18 10:11 Dose: 600 mg Oxycodone HCl (Roxicodone -) 5 mg PO DAILY PRN PRN Reason: PRIOR TO DRESSING CHANGE Assessment # Fever surgical wound infection MRSA colonozation previously ID opinion surgical opinion for wound care awaiting CT of groin abx / pain management plastic surgery opinion requested. disposition -- [place] for wound care /will discuss with counter caser Problem List - Problems (1) Fever Code(s): R50.9 - FEVER, UNSPECIFIED (2) Fever Code(s): R50.9 - FEVER, UNSPECIFIED (3) Postoperative wound infection Code(s): T81.4XXA - INFECTION FOLLOWING A PROCEDURE, INITIAL ENCOUNTER (4) MRSA (methicillin resistant staph aureus) culture positive Code(s): Z22.322 - CARRIER OR SUSPECTED CARRIER OF METHICILLIN RESIS STAPH (5) Elevated LFTs Code(s): R79.89 - OTHER SPECIFIED ABNORMAL FINDINGS OF BLOOD CHEMISTRY (6) Seizures Code(s): R56.9 - UNSPECIFIED CONVULSIONS
--- NOTE | 2018-01-23 10:03 | PN ---
Progress Note (short form) - Note Progress Note: seen and examine in room continues with pain to left leg along with persistent swelling Has been on fentanyl patch with no improvement in pain control additional pain meds when doing wound care -- still pain persist has remained afebrile for last 24hrs denies fever or chills Vital Signs Period Temp Pulse Resp BP Sys/Pedroza Pulse Ox Last 24 Hr 97.7 F-99.6 F 64-81 18-20 100-142/51-70 neck supple heart S1/S2 lungs clear bilat abd soft / no tenderness left groin packing gauze in place ++ swelling left leg + pulse CBC, BMP 01/23/18 07:00 01/22/18 06:30 Microbiology 01/19/18 19:09 Blood - Peripheral Venous Blood Culture - Preliminary NO GROWTH OBTAINED AFTER 72 HOURS, INCUBATION TO CONTINUE FOR 2 DAYS. 01/19/18 19:09 Blood - Peripheral Venous Blood Culture - Preliminary NO GROWTH OBTAINED AFTER 72 HOURS, INCUBATION TO CONTINUE FOR 2 DAYS. 01/19/18 23:50 Abscess Gram Stain - Final 01/19/18 23:50 Abscess Wound Culture - Final Pseudomonas Aeruginosa Acinetobacter Baumannii/Haemol Mr S Aureus Staphylococcus Coagulase Neg 01/19/18 20:37 Urine - Urine Clean Catch Urine Culture - Final Contaminated: Please Repeat Active Medications Acetaminophen (Tylenol -) 650 mg PO Q4H PRN PRN Reason: FEVER Last Admin: 01/23/18 09:46 Dose: 650 mg Docusate Sodium (Colace -) 100 mg PO BID [facility] Last Admin: 01/23/18 09:47 Dose: 100 mg Fentanyl (Duragesic 25mcg Patch -) 1 patch TD Q72H [facility] Last Admin: 01/21/18 18:11 Dose: 1 patch Vancomycin HCl 1,000 mg/ (Dextrose) 250 mls @ 166.667 mls/hr IVPB Q12H [facility]; Protocol Last Admin: 01/22/18 23:22 Dose: 166.667 mls/hr Cefepime HCl 2 gm/ Dextrose 100 mls @ 200 mls/hr IVPB BID [facility]; Protocol Last Admin: 01/23/18 09:46 Dose: 200 mls/hr Miscellaneous (Duragesic Patch Waste) 1 each TD PRN PRN PRN Reason: REMOVAL/WASTE Oxcarbazepine (Trileptal -) 600 mg PO BID [facility] Last Admin: 01/23/18 09:46 Dose: 600 mg Oxycodone HCl (Roxicodone -) 5 mg PO DAILY PRN PRN Reason: PRIOR TO DRESSING CHANGE Last Admin: 01/23/18 09:45 Dose: 5 mg Assessment # Fever surgical wound infection MRSA colonozation previously ID opinion --- will defer for recommendation for intermission coordinator abx ?? if so will need PICC plastic surgery opinion for wound care CT of groin - reviewed abx / pain management disposition -- PA for wound care / discussed with patient case coordinator Problem List - Problems (1) Fever Code(s): R50.9 - FEVER, UNSPECIFIED (2) Fever Code(s): R50.9 - FEVER, UNSPECIFIED (3) Postoperative wound infection Code(s): T81.4XXA - INFECTION FOLLOWING A PROCEDURE, INITIAL ENCOUNTER (4) MRSA (methicillin resistant staph aureus) culture positive Code(s): Z22.322 - CARRIER OR SUSPECTED CARRIER OF METHICILLIN RESIS STAPH (5) Elevated LFTs Code(s): R79.89 - OTHER SPECIFIED ABNORMAL FINDINGS OF BLOOD CHEMISTRY (6) Seizures Code(s): R56.9 - UNSPECIFIED CONVULSIONS
--- NOTE | 2018-01-23 12:01 | PN ---
Progress Note (short form) - Note Progress Note: continues to have leg pain wound examined with Dr Herrera afebrile Vital Signs Period Temp Pulse Resp BP Sys/Pedroza Pulse Ox Last 24 Hr 97.7 F-99.6 F 64-81 18-20 100-142/51-70 cor-rrr lungs clear abd soft,nt ext left groin ulcer with superficial slough, minimal erythema +lymphedema CBC, BMP 01/23/18 07:00 01/22/18 06:30 wound culture mrsa acinetobacter/pseudomonas sensitive to cefepime (called micro) ct scan no abscess a/p open wound with lymphedema vulvar cancer with lymph node dissection?- what is the nature of her malignancy wound examined with plastics would continue vancomycin and cefepime for now to try local wound care and leg elevation and wrapping to see if pain improves would consider [facility] for wound care/snf d/w Dr Herrera d/w Dr Joyner
[2018-01-23] MEDS: VANCOMYCIN 1,000 MG in DEXTROSE 5%-WATER - 250 ML IVPB SCH (14:04)
--- NOTE | 2018-01-23 15:24 | CONS ---
DATE OF CONSULTATION: DATE OF DICTATION: 01/23/2018 REQUESTING PHYSICIAN: Noelle Joyner MD REASON FOR CONSULTATION: A large open wound involving left inguinal area, lower abdomen, and upper thigh. HISTORY: The patient is a 67-year-old with a history of seizures, vulvar cancer and status post resection for the vulvar cancer done at the [facility]. She is status post recent lymph node dissection in October 2017. Recently discharged from medical center. Is now here for further care. The patient was seen in the emergency room with fever and chronic leg pain. This chronic pain has been present and swelling since her lymph node dissection. She was admitted with possible wound infection and VAC therapy. PAST HISTORY: Relevant for seizures, history of hypertension, vulvar cancer resection was 2018. SOCIAL HISTORY: She is a nonsmoker. No history of alcohol abuse. ALLERGIES: None. MEDICATIONS: Oxcarbazepine (Trileptal) 600 mg twice a day. FOCUSED EXAMINATION: Left lower extremity and lower abdomen: A large, open wound which is full thickness extends down to the inguinal area with undermining at the distal incision line. Another firm mass located on the pubic area. Drainage is excessive. Periwound is swollen. Left lower extremity is markedly swollen, indurated. IMPRESSION: Status post lymph node removal and vulvar surgery. RECOMMENDATION FOR WOUND CARE: Microbiology. The patient is positive or Pseudomonas aeruginosa, Acinetobacter baumannii, MRSA, and staph coagulase negative. PLAN OF CARE: 1. Local irrigation with Dakin solution. 2. Application of Silvadene cream twice a day. Better would be Medihoney for this kind of a wound. Will discuss with the physicians post-discharge she is to be started on Medihoney. 3. Elevation of lower extremities 35 degrees. 4. Lymphatic drainage and massage. Application of Callum bandage or Coban from the toes to the thigh to reduce the swelling. 5. Appropriate wound care and treatment to be instituted at Hospital will have good wound care. At this stage, a VAC should not be applied until the infection is under control. KAYODE WETZEL M.D. [id number]
[2018-01-23] MEDS: SODIUM HYPOCHLORITE 0.25%- 473 ML BULK BOTTLE TP SCH (21:35)
[2018-01-23] MEDS: SILVER SULFADIAZINE 1% TOP CREAM 50 GM JAR TP SCH (21:35)
[2018-01-23] MEDS ORDERED: VANCOMYCIN 1,000 MG in DEXTROSE 5%-WATER - 250 ML IVPB SCH (23:00)
--- NOTE | 2018-01-24 07:40 | PN ---
Progress Note (short form) - Note Progress Note: attending note Case discussed extensively with [facility]Onc Surgeon Dr Ybarra, Patient with recurrent Vulvar Ca stage III, - 10/14/15 radical vulvectomy and bilateral groin LND - 11/25/15 - 01/07/16 [id number] RT to right groin with cisplatin - 08/31/17 left groin mass resection for recurrent disease - 10/24/17 admission for non healing wound in left groin, underwent wound debridement with confirmation of recurrent disease on 10/26 Path report from 10/26/17 --Keratinizing squamous cell carcinoma, moderately differentiated, invading fibroadipose tissue The patient was informed she still has active Ca- son also aware. She was evaluated by plastics at the time of last admission to [facility] determined best option for wound care, decision made for wound vac, they not to use hyperbaric 2 to seizure hx. Although patient agreed to wound vac -- has been non compliant with its use. She was offered palliative care and referral to [place] in-patient to continue wound care--this was declined by both patient and son. She remains with active Ca-- and told the wound will never heal. It may get better but never completely heal. She continues with home remedies /alternative treatments. Problem List - Problems (1) Fever Code(s): R50.9 - FEVER, UNSPECIFIED (2) Fever Code(s): R50.9 - FEVER, UNSPECIFIED (3) Postoperative wound infection Code(s): T81.4XXA - INFECTION FOLLOWING A PROCEDURE, INITIAL ENCOUNTER (4) MRSA (methicillin resistant staph aureus) culture positive Code(s): Z22.322 - CARRIER OR SUSPECTED CARRIER OF METHICILLIN RESIS STAPH (5) Elevated LFTs Code(s): R79.89 - OTHER SPECIFIED ABNORMAL FINDINGS OF BLOOD CHEMISTRY (6) Seizures Code(s): R56.9 - UNSPECIFIED CONVULSIONS
[2018-01-24 08:33] LABS: BASO % 0.6 % (0-2.0); EOS % 6.7 % (0-4.5); HEMATOCRIT 29.4 % (32.4-45.2); HEMOGLOBIN 9.8 GM/dL (10.7-15.3); LYMPH % 10.6 % (8-40); MCHC 33.1 g/dl (32.0-36.0); MEAN CELL VOLUME 78.3 fl (80-96); MEAN PLT VOLUME 7.7 fl (7.5-11.1); MONO % 8.4 % (3.8-10.2); NEUT % 73.7 % (42.8-82.8); PLATELET COUNT 434 K/MM3 (134-434); RBC 3.76 M/mm3 (3.60-5.2); WHITE BLOOD COUNT 9.3 K/mm3 (4.0-10.0)
[2018-01-24 08:55] LABS: CHLORIDE 102 mmol/L (98-107); POTASSIUM 4.2 mmol/L (3.5-5.1); SODIUM 137 mmol/L (136-145)
--- NOTE | 2018-01-24 09:16 | CON.NEURO ---
Consult Consult Specialty:: Neurology Referred by:: Dr. 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 Cardio/Vascular: Yes: HTN (vulvar cancer resection 2017, groin lymph node resection 2017- [facility]) ...: No Heme/Onc: Yes: Other (vulvar cancer) Infectious Disease: Yes: Other (infected wound site, delayed healing) - Alcohol/Substance Use Hx Alcohol Use: No - Smoking History Smoking history: Never smoked Have you smoked in the past 12 months: No - Social History Usual Living Arrangement: With Child ADL: Independent History of Recent Travel: No Home Medications - Allergies Allergies/Adverse Reactions: Allergies Allergy/AdvReac Type Severity Reaction Status Date / Time No Known Allergies Allergy Verified 01/19/18 18:23 - Home Medications Home Medications: Ambulatory Orders Oxcarbazepine [Trileptal -] 600 mg PO BID tablet 01/16/18 Physical Exam-Neuro Vital Signs: Vital Signs Temperature 98.8 F 01/24/18 07:23 Pulse Rate 68 01/24/18 07:23 Respiratory Rate 20 01/24/18 07:23 Blood Pressure 124/58 01/24/18 07:23 O2 Sat by Pulse Oximetry (%) 96 01/23/18 21:00 Labs: CBC, BMP 01/24/18 07:18 01/24/18 07:18 INR, PTT INR 1.05 (0.82-1.09) 01/19/18 19:09 - Neuro Exam Level Of Consciousness: Yes: Alert, Oriented to Person, Oriented to Place, Oriented to Time (CN II-XII intact, motor 5/5, DTR's 2/4 throughout, sensory hyperesthesia left thigh, otherwise ok. plantars are flexor, gait deferred.) Imaging - Results Cat Scan: Report Reviewed (CT lower extremity, large tissue defect left groin) Problem List - Problems (1) Neuritis Code(s): M79.2 - NEURALGIA AND NEURITIS, UNSPECIFIED Assessment/Plan Neuropathic pain likely due to local inflamation/infection of local nerves. WIll try adding gabapentin starting at 300 tid. Can titrate up rapidly as tolerated to 3 grams daily if necessary. If not effective, regional block may be effective, but may also carry high risk of secondary infection, so prefer noninvasive approach.
[2018-01-24 09:18] LABS: ANION GAP 8 (8-16); BLOOD UREA NITROGEN 21 mg/dL (7-18); CALCIUM 8.8 mg/dL (8.5-10.1); CO2 27 mmol/L (21-32); CREATININE 0.7 mg/dL (0.55-1.02); GLUCOSE,RANDOM 90 mg/dL (74-106)
--- NOTE | 2018-01-24 09:19 | PN ---
Progress Note, Physician Chief Complaint: Case discussed with Dr Anya lowery history of cancer vulva and groin mass NO further fever - Current Medication List Current Medications: Active Medications Acetaminophen (Tylenol -) 650 mg PO Q4H PRN PRN Reason: FEVER Last Admin: 01/23/18 21:34 Dose: 650 mg Docusate Sodium (Colace -) 100 mg PO BID [facility] Last Admin: 01/23/18 21:34 Dose: 100 mg Fentanyl (Duragesic 25mcg Patch -) 1 patch TD Q72H [facility] Last Admin: 01/21/18 18:11 Dose: 1 patch Cefepime HCl 2 gm/ Dextrose 100 mls @ 200 mls/hr IVPB BID [facility]; Protocol Last Admin: 01/23/18 21:35 Dose: 200 mls/hr Vancomycin HCl 1,000 mg/ (Dextrose) 250 mls @ 166.667 mls/hr IVPB DAILY@2300 [facility]; Protocol Last Admin: 01/24/18 00:40 Dose: 166.667 mls/hr Miscellaneous (Duragesic Patch Waste) 1 each TD PRN PRN PRN Reason: REMOVAL/WASTE Oxcarbazepine (Trileptal -) 600 mg PO BID [facility] Last Admin: 01/23/18 21:35 Dose: 600 mg Oxycodone HCl (Roxicodone -) 5 mg PO Q12H PRN PRN Reason: 1 HR PRIOR TO DRESSING CHANGE Last Admin: 01/23/18 21:35 Dose: 5 mg Silver Sulfadiazine (Silvadene -) 1 applic TP BID [facility] Last Admin: 01/23/18 21:35 Dose: 1 applic Sodium Hypochlorite (Dakin's Solution 0.25% (Half-Strength) -) 1 applic TP BID [facility] Last Admin: 01/23/18 21:35 Dose: 1 applic - Objective Vital Signs: Vital Signs Temperature 98.8 F 01/24/18 07:23 Pulse Rate 68 01/24/18 07:23 Respiratory Rate 20 01/24/18 07:23 Blood Pressure 124/58 01/24/18 07:23 O2 Sat by Pulse Oximetry (%) 96 01/23/18 21:00 Constitutional: Yes: Well Nourished, No Distress Neck: Yes: WNL, Supple Cardiovascular: Yes: S1, S2 Respiratory: Yes: WNL, Regular, CTA Bilaterally Gastrointestinal: Yes: Soft. No: Tenderness Extremities: Yes: Other (swelling left leg Groin wound) Labs: CBC, BMP 01/24/18 07:18 01/24/18 07:18 INR, PTT INR 1.05 (0.82-1.09) 01/19/18 19:09 Problem List - Problems (1) Fever Code(s): R50.9 - FEVER, UNSPECIFIED (2) Wound infection Code(s): T14.8XXA - OTHER INJURY OF UNSPECIFIED BODY REGION, INITIAL ENCOUNTER; L08.9 - LOCAL INFECTION OF THE SKIN AND SUBCUTANEOUS TISSUE, UNSP (3) Elevated LFTs Code(s): R79.89 - OTHER SPECIFIED ABNORMAL FINDINGS OF BLOOD CHEMISTRY (4) MRSA (methicillin resistant staph aureus) culture positive Code(s): Z22.322 - CARRIER OR SUSPECTED CARRIER OF METHICILLIN RESIS STAPH Assessment/Plan Microbiology 01/19/18 23:50 Abscess Gram Stain - Final 01/19/18 23:50 Abscess Wound Culture - Final Pseudomonas Aeruginosa Acinetobacter Baumannii/Haemol Mr S Aureus Staphylococcus Coagulase Neg Laboratory Tests 01/23/18 01/24/18 10:55 07:18 WBC 9.3 Plt Count 434 Vancomycin Pre-Dose 19.873 H* Assessment Vulvar cancer groin mass large open wound Polymicrobial culture Plan Stop antibiotics and substitute Levoflox and Doxycycline for MRSA and GNR coverage for few more days
--- NOTE | 2018-01-24 09:55 | PN ---
Progress Note (short form) - Note Progress Note: 67 y/o female found lying in bed. C/o pain in left thigh. Vital Signs Period Temp Pulse Resp BP Sys/Pedroza Pulse Ox Last 24 Hr 97.6 F-99.7 F 68-86 18-20 112-137/58-82 96 CBC, BMP 01/24/18 07:18 01/24/18 07:18 HEENT- Normocephalic Neck- Supple Lungs- CTAB Heart- S1/S2 Abd- Pos BS x 4, soft, NT Ext- No LE edema in RT ext 2 + pitting edema in Lt Ext DTRs 2/4 throughout Sensory hyperesthesia Lt thigh Active Medications Acetaminophen (Tylenol -) 650 mg PO Q4H PRN PRN Reason: FEVER Last Admin: 01/23/18 21:34 Dose: 650 mg Docusate Sodium (Colace -) 100 mg PO BID [facility] Last Admin: 01/23/18 21:34 Dose: 100 mg Doxycycline Hyclate (Vibramycin -) 100 mg PO BID@1000,1800 [facility] Fentanyl (Duragesic 25mcg Patch -) 1 patch TD Q72H [facility] Last Admin: 01/21/18 18:11 Dose: 1 patch Gabapentin (Neurontin -) 300 mg PO TID [facility] Levofloxacin (Levaquin -) 500 mg PO DAILY@0600 [facility] Miscellaneous (Duragesic Patch Waste) 1 each TD PRN PRN PRN Reason: REMOVAL/WASTE Oxcarbazepine (Trileptal -) 600 mg PO BID [facility] Last Admin: 01/23/18 21:35 Dose: 600 mg Oxycodone HCl (Roxicodone -) 5 mg PO Q12H PRN PRN Reason: 1 HR PRIOR TO DRESSING CHANGE Last Admin: 01/23/18 21:35 Dose: 5 mg Silver Sulfadiazine (Silvadene -) 1 applic TP BID [facility] Last Admin: 01/23/18 21:35 Dose: 1 applic Sodium Hypochlorite (Dakin's Solution 0.25% (Half-Strength) -) 1 applic TP BID [facility] Last Admin: 01/23/18 21:35 Dose: 1 applic Assessment # WD infection Afebrile over last 24 hrs Appreciate Neuro/ID/ WD consults Start Gabapentin TID for pain Start Levofloxacin/ Doxycycline for MRSA and GNR coverage Continue WD care with [facility], for wound care. Pt/son declined Palliative care/ Wd care in house at [place]. Problem List - Problems (1) Fever Code(s): R50.9 - FEVER, UNSPECIFIED (2) Fever Code(s): R50.9 - FEVER, UNSPECIFIED (3) Postoperative wound infection Code(s): T81.4XXA - INFECTION FOLLOWING A PROCEDURE, INITIAL ENCOUNTER (4) MRSA (methicillin resistant staph aureus) culture positive Code(s): Z22.322 - CARRIER OR SUSPECTED CARRIER OF METHICILLIN RESIS STAPH (5) Elevated LFTs Code(s): R79.89 - OTHER SPECIFIED ABNORMAL FINDINGS OF BLOOD CHEMISTRY (6) Seizures Code(s): R56.9 - UNSPECIFIED CONVULSIONS
[2018-01-24] MEDS ORDERED: PT OWN MED DRAWER 7, Y5N ONE ×2 (10:01→20:34)
[2018-01-24] MEDS: SODIUM HYPOCHLORITE 0.25%- 473 ML BULK BOTTLE TP SCH ×2 (10:13→21:12)
[2018-01-24] MEDS: SILVER SULFADIAZINE 1% TOP CREAM 50 GM JAR TP SCH ×2 (10:13→21:12)
[2018-01-24] MEDS: OXcarbazepine 300 MG TABLET (UD) PO SCH ×2 (10:16→21:08)
[2018-01-24] MEDS: ACETAMINOPHEN 325 MG TABLET (FP) PO PRN (10:16)
[2018-01-24] MEDS: DOCUSATE SODIUM 100 MG CAPSULE (FP) PO SCH ×2 (10:17→21:08)
[2018-01-24] MEDS: DOXYCYCLINE HYCLATE 100 MG CAPSULE PO SCH ×2 (10:17→18:52)
[2018-01-24] MEDS: oxyCODONE HCL 5 MG TABLET PO PRN ×2 (10:17→22:04)
[2018-01-24] MEDS: GABAPENTIN 300 MG CAPSULE (FP) PO SCH ×2 (14:01→21:08)
[2018-01-24] MEDS ORDERED: FENTANYL PATCH WASTE TD PRN (17:46)
[2018-01-24] MEDS: fentaNYL 25mcg/hr PATCH.TD72 TD SCH (18:51)
[2018-01-25] MEDS: ACETAMINOPHEN 325 MG TABLET (FP) PO PRN ×3 (01:44→10:07)
[2018-01-25] MEDS: GABAPENTIN 300 MG CAPSULE (FP) PO SCH (05:57)
[2018-01-25 08:54] LABS: BASO % 0.5 % (0-2.0); EOS % 7.5 % (0-4.5); HEMATOCRIT 28.9 % (32.4-45.2); HEMOGLOBIN 9.4 GM/dL (10.7-15.3); MCH 25.8 pg (25.7-33.7); MCHC 32.7 g/dl (32.0-36.0); MEAN CELL VOLUME 78.8 fl (80-96); MEAN PLT VOLUME 7.8 fl (7.5-11.1); MONO % 8.6 % (3.8-10.2); NEUT % 70.4 % (42.8-82.8); PLATELET COUNT 444 K/MM3 (134-434); RBC 3.66 M/mm3 (3.60-5.2); RDW 14.8 % (11.6-15.6); WHITE BLOOD COUNT 8.4 K/mm3 (4.0-10.0)
[2018-01-25 09:24] LABS: ANION GAP 8 (8-16); BLOOD UREA NITROGEN 25 mg/dL (7-18); CALCIUM 8.9 mg/dL (8.5-10.1); CHLORIDE 101 mmol/L (98-107); CO2 28 mmol/L (21-32); GLUCOSE,RANDOM 111 mg/dL (74-106); POTASSIUM 4.2 mmol/L (3.5-5.1); SODIUM 137 mmol/L (136-145)
[2018-01-25 09:29] LABS: ALK PHOS 359 U/L (45-117); BILIRUBIN,TOTAL 0.2 mg/dL (0.2-1.0); CREATININE 0.8 mg/dL (0.55-1.02); SGOT/AST 52 U/L (15-37); SGPT/ALT 136 U/L (12-78)
[2018-01-25] MEDS ORDERED: PT OWN MED DRAWER 7, Y5N ONE (09:56)
[2018-01-25] MEDS: OXcarbazepine 300 MG TABLET (UD) PO SCH (10:04)
[2018-01-25] MEDS: DOCUSATE SODIUM 100 MG CAPSULE (FP) PO SCH (10:04)
[2018-01-25] MEDS: DOXYCYCLINE HYCLATE 100 MG CAPSULE PO SCH (10:04)
[2018-01-25] MEDS: oxyCODONE HCL 5 MG TABLET PO PRN (10:07)
[2018-01-25] MEDS: SILVER SULFADIAZINE 1% TOP CREAM 50 GM JAR TP SCH (10:12)
[2018-01-25] MEDS: SODIUM HYPOCHLORITE 0.25%- 473 ML BULK BOTTLE TP SCH (10:12)
--- NOTE | 2018-01-25 10:57 | DS ---
Physical Examination Vital Signs: Pt found sitting in bed, talking on phone. States pain is bad when Wd is cleaned. Not bad at present. CBC, BMP 01/25/18 07:00 01/25/18 07:00 Vital Signs Temperature 98.1 F 01/25/18 10:00 Pulse Rate 71 01/25/18 10:00 Respiratory Rate 20 01/25/18 10:00 Blood Pressure 120/67 01/25/18 10:00 O2 Sat by Pulse Oximetry (%) 96 01/24/18 21:00 HEENT- normocephalic Neck-Supple Lungs- Ctab Heart- S1/S2 Abd- Pos BS x 4, soft, nt Ext- Neg RT LE edema +1 LT Le edema Active Medications Acetaminophen (Tylenol -) 650 mg PO Q4H PRN PRN Reason: FEVER Last Admin: 01/25/18 10:07 Dose: 650 mg Docusate Sodium (Colace -) 100 mg PO BID [facility] Last Admin: 01/25/18 10:04 Dose: 100 mg Doxycycline Hyclate (Vibramycin -) 100 mg PO BID@1000,1800 [facility] Last Admin: 01/25/18 10:04 Dose: 100 mg Fentanyl (Duragesic 25mcg Patch -) 1 patch TD Q72H [facility] Last Admin: 01/24/18 18:51 Dose: 1 patch Gabapentin (Neurontin -) 300 mg PO TID [facility] Last Admin: 01/25/18 05:57 Dose: 300 mg Levofloxacin (Levaquin -) 500 mg PO DAILY@0600 [facility] Last Admin: 01/25/18 05:57 Dose: 500 mg Miscellaneous (Duragesic Patch Waste) 1 each TD PRN PRN PRN Reason: REMOVAL/WASTE Last Admin: 01/24/18 18:56 Dose: 1 each Oxcarbazepine (Trileptal -) 600 mg PO BID [facility] Last Admin: 01/25/18 10:04 Dose: 600 mg Oxycodone HCl (Roxicodone -) 5 mg PO Q12H PRN PRN Reason: 1 HR PRIOR TO DRESSING CHANGE Last Admin: 01/25/18 10:07 Dose: 5 mg Silver Sulfadiazine (Silvadene -) 1 applic TP BID [facility] Last Admin: 01/25/18 10:12 Dose: 1 applic Sodium Hypochlorite (Dakin's Solution 0.25% (Half-Strength) -) 1 applic TP BID [facility] Last Admin: 01/25/18 10:12 Dose: 1 applic Constitutional: Yes: Well Nourished, Calm Eyes: Yes: Conjunctiva Clear HENT: Yes: Normocephalic Neck: Yes: Supple, Trachea Midline Cardiovascular: Yes: Regular Rate and Rhythm Respiratory: Yes: Regular, CTA Bilaterally Gastrointestinal: Yes: Normal Bowel Sounds, Soft ...Rectal Exam: Yes: Deferred Renal/: Yes: WNL Musculoskeletal: Yes: Joint Swelling, Muscle Weakness Extremities: Yes: Cool Edema: LUE: 2+, RUE: 2+, LLE: 2+, RLE: 2+ Peripheral Pulses WNL: Yes Integumentary: Yes: Other (LT Groin surgical site) Neurological: Yes: Alert, Oriented ...Motor Strength: WNL Psychiatric: Yes: Alert, Oriented Labs: CBC, BMP 01/25/18 07:00 01/25/18 07:00 Discharge Summary Reason For Visit: WOUND OF LEFT GROIN SEPSIS Current Active Problems Elevated LFTs (Acute) Fever (Acute) MRSA (methicillin resistant staph aureus) culture positive (Acute) Neuritis (Acute) Condition: Guarded - Instructions Disposition: [facility] - Home Medications Comprehensive Discharge Medication List: Ambulatory Orders Oxcarbazepine [Trileptal -] 600 mg PO BID tablet 01/16/18
--- NOTE | 2018-01-25 12:48 | PN ---
Progress Note, Physician Chief Complaint: pain in groin and left leg History of Present Illness: 67 year old woman with history of vulvar cancer and surgical wound with difficulty healing, infection, and pain at wound site. Pain involves local area around the wound and also the area in the left leg distal to the wound and is described as burning. She does note improvement with the addition of gabapentin 300 mg tid and without undue sedation. - Current Medication List Current Medications: Active Medications Acetaminophen (Tylenol -) 650 mg PO Q4H PRN PRN Reason: FEVER Last Admin: 01/25/18 10:07 Dose: 650 mg Docusate Sodium (Colace -) 100 mg PO BID [facility] Last Admin: 01/25/18 10:04 Dose: 100 mg Doxycycline Hyclate (Vibramycin -) 100 mg PO BID@1000,1800 [facility] Last Admin: 01/25/18 10:04 Dose: 100 mg Fentanyl (Duragesic 25mcg Patch -) 1 patch TD Q72H [facility] Last Admin: 01/24/18 18:51 Dose: 1 patch Gabapentin (Neurontin -) 400 mg PO TID [facility] Levofloxacin (Levaquin -) 500 mg PO DAILY@0600 [facility] Last Admin: 01/25/18 05:57 Dose: 500 mg Miscellaneous (Duragesic Patch Waste) 1 each TD PRN PRN PRN Reason: REMOVAL/WASTE Last Admin: 01/24/18 18:56 Dose: 1 each Oxcarbazepine (Trileptal -) 600 mg PO BID [facility] Last Admin: 01/25/18 10:04 Dose: 600 mg Oxycodone HCl (Roxicodone -) 5 mg PO Q12H PRN PRN Reason: 1 HR PRIOR TO DRESSING CHANGE Last Admin: 01/25/18 10:07 Dose: 5 mg Silver Sulfadiazine (Silvadene -) 1 applic TP BID [facility] Last Admin: 01/25/18 10:12 Dose: 1 applic Sodium Hypochlorite (Dakin's Solution 0.25% (Half-Strength) -) 1 applic TP BID [facility] Last Admin: 01/25/18 10:12 Dose: 1 applic - Objective Vital Signs: Vital Signs Temperature 98.1 F 01/25/18 10:00 Pulse Rate 71 01/25/18 10:00 Respiratory Rate 20 01/25/18 10:00 Blood Pressure 120/67 01/25/18 10:00 O2 Sat by Pulse Oximetry (%) 93 L 01/25/18 09:00 Neurological: Yes: Other (exam reveals no motor weakness but hyperesthesia in the thigh on the left side.) Labs: CBC, BMP 01/25/18 07:00 01/25/18 07:00 INR, PTT INR 1.05 (0.82-1.09) 01/19/18 19:09 Problem List - Problems (1) Neuritis Code(s): M79.2 - NEURALGIA AND NEURITIS, UNSPECIFIED Assessment/Plan Neuropathic pain likely due to local inflamation/infection of local nerves. WIll try adding gabapentin starting at 300 tid. This has been effective and well tolerated. I'll increase to 400 mg tid. This can gradually be titrated up as needed and tolerated to about [address] Mckenzie is covering the .
--- NOTE | 2018-01-25 13:19 | PN ---
Progress Note (short form) - Note Progress Note: FU Wound Left Inguinal area Patient looks more comfortable, less sharp shooting but does have radiating Neuropathic pain Wound responding to change , responding to silvidine cream and Dakins solution Wound edges less indurated, no odor, swelling upper thigh has decreased Microbiology 01/19/18 23:50 Abscess Gram Stain - Final 01/19/18 23:50 Abscess Wound Culture - Final Pseudomonas Aeruginosa Acinetobacter Baumannii/Haemol Mr S Aureus Staphylococcus Coagulase Neg Selected Entries 01/25/18 10:00 Temperature 98.1 F Pulse Rate 71 Respiratory 20 Rate Blood Pressure 120/67 Laboratory Tests 01/19/18 01/25/18 19:09 07:00 WBC 14.6 H D 8.4 Hgb 10.6 L 9.4 L Hct 32.7 28.9 L MCV 79.0 L 78.8 L MCH 25.6 L Lymphocytes % 13.0 D Monocytes % 8.6 Eosinophils % 7.5 H Plan : Patient being transferred to SNF Continue same wound care : Silvidine cream afte irrigating with Daikins solution , apply 4x4 but do not pack tightly Patient does have MRSA, thus after two one of present wound care, D/C Silvidine cream and start Mupurocin or consider Medihoney . I will be away on Vacation for month Patient can be seen by wound specialists in Wound clinic if needed
--- NOTE | 2018-01-25 13:39 | DS ---
Physical Examination Vital Signs: 67 y/o female hosp for Lt groin surgical Wd infection s/p resection of Vulvar Cancer. Vital Signs Temperature 98.1 F 01/25/18 10:00 Pulse Rate 71 01/25/18 10:00 Respiratory Rate 20 01/25/18 10:00 Blood Pressure 120/67 01/25/18 10:00 O2 Sat by Pulse Oximetry (%) 93 L 01/25/18 09:00 Constitutional: Yes: Well Nourished, Calm Eyes: Yes: Conjunctiva Clear, EOM Intact HENT: Yes: Atraumatic, Normocephalic Neck: Yes: Supple, Trachea Midline Cardiovascular: Yes: Regular Rate and Rhythm Respiratory: Yes: Regular, CTA Bilaterally Gastrointestinal: Yes: Normal Bowel Sounds, Soft ...Rectal Exam: Yes: Deferred Renal/: Yes: WNL Musculoskeletal: Yes: Joint Swelling, Muscle Weakness Extremities: Yes: Cool Edema: Yes Edema: LUE: 1+ Peripheral Pulses WNL: Yes Integumentary: Yes: Other (Lt groin surgical WD) Wound/Incision: Yes: Draining, Unapproximated Neurological: Yes: Alert, Oriented ...Motor Strength: WNL Psychiatric: Yes: Alert, Oriented Labs: CBC, BMP 01/25/18 07:00 01/25/18 07:00 Discharge Summary Reason For Visit: WOUND OF LEFT GROIN SEPSIS Current Active Problems Elevated LFTs (Acute) Fever (Acute) MRSA (methicillin resistant staph aureus) culture positive (Acute) Neuritis (Acute) Condition: Guarded - Instructions Disposition: [facility] - Home Medications Comprehensive Discharge Medication List: Ambulatory Orders Oxcarbazepine [Trileptal -] 600 mg PO BID tablet 01/16/18 Acetaminophen 650MG po Q 4 HRS prn Colace 200 mg po BID Doxycycline 100mg po BID Fentanyl 25 mcg 1 patch q 72 hrs Gabapentin 400 mg po TID Levaquin 500 mg po daily Trileptal 600 mg po BID Oxycodone 5 mg po q 12 hrs prn silver sulfadine 1 % BID Sodium Hypochlorite BID Plan- Hospitalized for Lt groin WD infection after resection for Vulvar Cancer. DC to [facility] for local WD care.
[2018-01-25] MEDS ORDERED: GABAPENTIN 400 MG CAPSULE (FP) PO SCH (14:00)
[2018-01-25 14:01] VITALS: BP 137/71; PULSE 83; TEMP 98.7
[2018-01-25] MEDS ORDERED: DOXYCYCLINE HYCLATE 100 MG CAPSULE PO SCH (18:00)
== END 2018-01-25 17:10 | DRG 863 ==
LOC: JER 17:59 → JERBED 21:49 → J8W 01-20 00:53
PROVIDERS: ADMIT Family Medicine; ATTEND Family Medicine
DX: T81.4XXA Infection following a procedure, initial encounter (principal); L03.116 Cellulitis of left lower limb; G40.89 Other seizures; N39.0 Urinary tract infection, site not specified; T81.31XA Disruption of external operation (surgical) wound, not elsewhere classified, initial encounter; L04.1 Acute lymphadenitis of trunk; Y83.8 Other surgical procedures as the cause of abnormal reaction of the patient, or of later complication, without mention of misadventure at the time of the procedure; I10 Essential (primary) hypertension; Z85.828 Personal history of other malignant neoplasm of skin; Z91.14 Patient's other noncompliance with medication regimen; Z22.322 Carrier or suspected carrier of Methicillin resistant Staphylococcus aureus; L98.499 Non-pressure chronic ulcer of skin of other sites with unspecified severity; B95.62 Methicillin resistant Staphylococcus aureus infection as the cause of diseases classified elsewhere; M79.2 Neuralgia and neuritis, unspecified; B95.7 Other staphylococcus as the cause of diseases classified elsewhere; B96.5 Pseudomonas (aeruginosa) (mallei) (pseudomallei) as the cause of diseases classified elsewhere; I89.0 Lymphedema, not elsewhere classified
CPT/HCPCS: 36415; 71045-TC-FY; 73700-TC-RT; 80048; 80053; 81003; 81015; 82550; 83605; 83735; 85025; 85610; 85730; 86140; 87040; 87070; 87086; 87186; 87205; 93005; 93010; 99283-25; G0480; J0131